=== PATIENT | female | born 1970 | race Caucasian/White ===

== ENCOUNTER 2020-04-04 13:42 | Outpatient (REF) | payer BC, SELFPAY | END 2020-04-04 13:43 | disposition home or self-care (01) | LOC: HO.LNP 13:42 | PROVIDERS: Visit Provider Internal Medicine | DX: Z20.828 Contact with and (suspected) exposure to other viral communicable diseases (principal) | CPT/HCPCS: C9803; U0003 ==

== ENCOUNTER 2020-07-02 14:06 | Outpatient (REF) | payer OTHER, SELFPAY ==
--- NOTE | 2020-07-02 14:10 | MM_ITS ---
EXAMINATION: MM SCREENING DIGITAL BREAST TOMOSYNTHESIS, BILATERAL CLINICAL INFORMATION: Screening. Asymptomatic. Status post breast reduction surgery. The lifetime risk of breast cancer based on the Tyrer-Cuzick Model is 8.3%. COMPARISON: Mammography: March 23, 2019 and studies dating back to May 15, 2013 TECHNIQUE: Digital breast tomosynthesis is performed in both the craniocaudal and mediolateral oblique views along with computer-aided detection (CAD). Synthesized 2D images are generated from the tomosynthesis. FINDINGS: There are scattered areas of fibroglandular density (ACR BI-RADS breast composition Category b). There are bilateral stable regions of postsurgical scarring. No new abnormal dominant mass or suspicious grouping of microcalcifications identified. MM/MM tomosynthesis screening BI IMPRESSION: There are no significant changes from prior study. ASSESSMENT: BI-RADS 2: Benign RECOMMENDATION: Routine annual mammography screening. This patient's information was entered into a reminder system with a target due date for their next mammogram.
== END 2020-07-02 14:07 | disposition home or self-care (01) ==
LOC: HO.MAMMO 14:06
PROVIDERS: PCP Internal Medicine; Visit Provider Internal Medicine
DX: Z12.31 Encounter for screening mammogram for malignant neoplasm of breast (principal)
CPT/HCPCS: 77063; 77067

== ENCOUNTER 2021-05-30 09:26 | Outpatient (REF) | payer OTHER, SELFPAY ==
[2021-05-30 10:45] LABS: Influenza A PCR NEGATIVE (Negative); Influenza B PCR NEGATIVE (Negative); Resp Syncy Virus RNA Qual PCR NEGATIVE (Negative); SARS COV2 PCR INHOUSE POSITIVE (Negative)
== END 2021-05-30 09:27 | disposition home or self-care (01) ==
LOC: HO.10HDLNP 09:26
PROVIDERS: Visit Provider Internal Medicine
DX: Z20.822 Contact with and (suspected) exposure to COVID-19 (principal)
CPT/HCPCS: 0241U

== ENCOUNTER 2021-08-25 08:14 | Outpatient (REF) | payer OTHER, SELFPAY ==
--- NOTE | ~2021-08-25 | MM_ITS ---
EXAMINATION: MM SCREENING DIGITAL BREAST TOMOSYNTHESIS, BILATERAL CLINICAL INFORMATION: Screening. Asymptomatic. Remote reduction mammoplasty, 1994. The lifetime risk of breast cancer based on the Tyrer-Cuzick Model is 14%. COMPARISON: Mammography: 07/02/2020, 03/23/2019, 03/07/2018 TECHNIQUE: Digital breast tomosynthesis is performed in both the craniocaudal and mediolateral oblique views along with computer-aided detection (CAD). Synthesized 2D images are generated from the tomosynthesis. FINDINGS: There are scattered areas of fibroglandular density (ACR BI-RADS breast composition Category b). Parenchymal pattern is similar to prior studies. There is stable minor scarring and benign fine round and rim and dermal calcifications consistent with the reduction mammoplasty. There is no interval architectural abnormality, mass, or developing density. No significant changes. MM/MM tomosynthesis screening BI IMPRESSION: No mammographic evidence of malignancy. ASSESSMENT: BI-RADS 2: Benign RECOMMENDATION: Routine annual mammography screening. This patient's information was entered into a reminder system with a target due date for their next mammogram.
== END 2021-08-25 08:15 | disposition home or self-care (01) ==
LOC: HO.MAMMO 08:14
PROVIDERS: PCP Internal Medicine; Visit Provider Internal Medicine
DX: Z12.31 Encounter for screening mammogram for malignant neoplasm of breast (principal)
CPT/HCPCS: 77063; 77067

== ENCOUNTER 2021-09-10 13:43 | Emergency (ER) | payer OTHER, SELFPAY ==
[2021-09-10 14:32] VITALS: BP 105/78; PULSE 65; RESP 16; TEMP 36.5; O2SAT 100; BMI 22.6
--- NOTE | 2021-09-10 15:40 | ED.WOUNDLAC ---
HPI - Wound/Laceration General Chief Complaint: Wound/Laceration Stated Complaint: thumb lac Time Seen by Provider: 09/10/21 15:40 Source: patient Mode of arrival: ambulatory Limitations: no limitations History of Present Illness HPI narrative: 51 year old female no significant medical hx presents w/ a laceration to right thumb. Patient tells me she was using a mandolin slicing machine to cut potatoes and she accidentally cut her left thumb. Patient was seen at urgent care and she was advised to come into the emergency department for sutures. She tells me this occurred at around noon. Denies numbness or tingling. She is right-hand dominant. Up to date on a tetanus shot. Denies fevers and chills Onset (ago): hour(s) (5) Body four view annotation: 1. Distal avulsion Place: home Patient tetanus UTD: Yes Context: accidental Associated symptoms: none Related Data Previous Rx's Medication Instructions Recorded doxycycline hyclate 100 mg capsule 100 mg PO BID 10 Days #20 cap 09/10/21 Allergies Allergy/AdvReac Type Severity Reaction Status Date / Time codeine [CODEINE] Allergy Mild RASH Verified 09/10/21 14:30 Review of Systems Review of Systems: Constitutional : No Fever, No Chills, Cardiovascular : No Chest Pain, No SOB Respiratory : No Dyspnea Gastrointestinal : No abdominal pain Musculoskeletal : No Joint Swelling Skin : No rash, positive skin laceration Neuro : No Weakness, No Numbness Psych : No SI/HI Yes all other systems are reviewed and are negative PMFSH Past Medical History Attestation statement: The following information was validated with the patient. Source: old records reviewed and nursing notes reviewed Medical History No known health problems Social History Social History Advance Directives: No Advance Directives Information Provided: No Physical Exam Vital Signs: Vital Signs: Last Vital Signs Temp 97.7 F 09/10/21 14:32 Pulse 65 09/10/21 14:32 Resp 16 09/10/21 14:32 BP 105/78 09/10/21 14:32 Pulse Ox 100 09/10/21 14:32 BMI result Body Mass Index 22.6 Vital signs stable Appearance: Alert.? Oriented X3.? No acute distress.? Head: Normocephalic, atraumatic, no step-offs or deformities Eyes: Pupils equal, round and reactive to light.? Neck: Normal inspection.? Neck supple.? CVS: Normal heart rate and rhythm.? Pulses normal.? Respiratory: No respiratory distress.? Breath sounds normal.? Abdomen: Soft and nontender.? Skin: Skin warm and dry.? Normal skin color.? Normal skin turgor.?+ avulsion to the left distal aspect of thumb. Image attached Extremities: No lower extremity edema.? No calf ttp. 5/5 strength to bilateral upper and lower extremities 2+ radial pulses equal bilateral. Sensation intact all upper extremities/digits. Full range of motion to all fingers bilaterally. + laceration to left thumb. No involvement of nail bed. Capillary refill less than 2 seconds. No evidence of foreign bodies. No evident ligament or tendon involvement. Neuro: Oriented X 3.? No motor deficit.? No sensory deficit. CN 2-12 intact Course Reevaluation(s) Reevaluation #1: Surgicel and Xeroform were applied to the area. Bili eating well controlled. Sensation motor intact. A dry dressing was applied to the area. Patient was advised to keep this dressing on for 24 hours. Also advised her to take antibiotics doxycycline 100 mg p.o. b.i.d. The educated her on worrisome signs and symptoms and advised her to return if any of these arise. Comfortable discharge Time: 16:52 MDM - Wound/Laceration [facility] Narrative Medical decision making narrative: 1542 51 yo f presents w/ an avulsion to l thumb PE significant for 2+ radial pulses equal bilateral. Sensation intact all upper extremities/digits. Full range of motion to all fingers bilaterally. + laceration to left thumb. No involvement of nail bed. Capillary refill less than 2 seconds. No evidence of foreign bodies. No evident ligament or tendon involvement. Plan- Surgicel and Xeroform will be applied to the area. Medical Records Attestation: I reviewed the patient's medical records. Lab Data Attestation: I reviewed the patient's lab results. Critical Care Time Critical Care Time Critical Care Time: No Discharge Plan Discharge Clinical Impression: Avulsion of skin Patient Disposition: Home, Self-Care Additional Instructions: Take your medications as prescribed. If you were prescribed antibiotics today, it is important that you take your medication to their entirety, do not skip any doses, do not finish them early. Follow-up with your primary care provider this week. Return to the emergency department with new or worsening symptoms. Such as fevers, chills, chest pain, shortness of breath, nausea, vomiting, dizziness, headache, vision changes, lethargy In case of emergency call 911 Prescriptions: New doxycycline hyclate 100 mg capsule 100 mg PO BID 10 Days Qty: 20 0RF Referrals: Bryce Jeffery MD [Primary Care Provider] - 1 week Stand Alone Forms: Work/School Release
[2021-09-10] MEDS: Lidocaine HCl 2 % MPF 5 ML VIAL SUBCUT (15:48)
[2021-09-10 17:06] VITALS: BP 137/82; PULSE 69; RESP 16; TEMP 36.8; O2SAT 100
== END 2021-09-10 17:36 | disposition home or self-care (01) ==
PROVIDERS: Emergency Provider Emergency Medicine; PCP Internal Medicine
DX: S61.011A Laceration without foreign body of right thumb without damage to nail, initial encounter (principal); M79.641 Pain in right hand; W26.9XXA Contact with unspecified sharp object(s), initial encounter; Y93.9 Activity, unspecified; Y92.009 Unspecified place in unspecified non-institutional (private) residence as the place of occurrence of the external cause; Y99.9 Unspecified external cause status
CPT/HCPCS: 12001; 96372; 99284

== ENCOUNTER 2022-10-27 07:16 | Outpatient (REF) | payer OTHER, SELFPAY ==
--- NOTE | ~2022-10-27 | MM_ITS ---
EXAMINATION: MM SCREENING DIGITAL BREAST TOMOSYNTHESIS, BILATERAL CLINICAL INFORMATION: Screening. Asymptomatic. Remote reduction mammoplasty, 1994. The lifetime risk of breast cancer based on the Tyrer-Cuzick Model is 12%. COMPARISON: Mammography: 08/25/2021, 07/02/2020, 03/23/2019, 03/07/2018 TECHNIQUE: Digital breast tomosynthesis is performed in both the craniocaudal and mediolateral oblique views along with computer-aided detection (CAD). Synthesized 2D images are generated from the tomosynthesis. FINDINGS: There are scattered areas of fibroglandular density (ACR BI-RADS breast composition Category b). There are no significant masses, abnormal calcifications, or other abnormalities. Parenchymal pattern is similar to prior studies. There is no developing density or architectural abnormality. There is minor scarring and some scattered anterior breast calcifications consistent with the reduction mammoplasty. The axilla and skin contours are unremarkable. No significant changes. MM/MM tomosynthesis screening BI IMPRESSION: No mammographic evidence of malignancy. ASSESSMENT: BI-RADS 2: Benign RECOMMENDATION: Routine annual mammography screening. This patient's information was entered into a reminder system with a target due date for their next mammogram.
== END 2022-10-27 07:17 | disposition home or self-care (01) ==
LOC: HO.MAMMO 07:16
PROVIDERS: PCP Internal Medicine; Visit Provider Internal Medicine
DX: Z12.31 Encounter for screening mammogram for malignant neoplasm of breast (principal)
CPT/HCPCS: 77063; 77067

== ENCOUNTER 2023-03-15 08:59 | Outpatient (REF) | payer OTHER, SELFPAY ==
[2023-03-15 11:54] LABS: MANUAL DIFF FLAG NO
[2023-03-15 12:02] LABS: Basophils Percent Auto 0.5 % (0-2); Eosinophils Absolute Auto 0.1 X10*3/uL (0.0-0.4); Eosinophils Percent Auto 1.6 % (0-4); Hematocrit 42.9 % (37.0-47.0); Hemoglobin 14.3 g/dl (12.0-16.0); Imm Gran Abs Auto 0.01 X10*3/uL (0.00-0.03); Imm Gran Pct Auto 0.2 % (0.0-0.4); Lymphocytes Absolute Auto 2.2 X10*3/uL (1.2-4.9); Lymphocytes Percent Auto 39.4 % (20-40); Mean Corpuscular HGB Conc 33.3 g/dl (31.0-35.0); Mean Corpuscular Hemoglobin 31.8 pg (27.0-33.0); Mean Corpuscular Volume 95.3 fL (80.0-98.0); Mean Platelet Volume 10.3 fL (9.4-12.3); Monocytes Absolute Auto 0.3 X10*3/uL (0.1-1.2); Monocytes Percent Auto 6.1 % (2-11); Neutrophils Absolute Auto 2.9 x10*3/uL (2.0-8.3); Neutrophils Percent Auto 52.2 % (45-73); Platelet Count 286 X10*3/uL (160-400); Red Cell Distribution Width 12.3 % (11.0-16.0); White Blood Count 5.6 X10*3/uL (4.8-10.8)
[2023-03-15 12:53] LABS: Alanine Aminotransferase 13 U/L (0-31); Albumin Level 4.2 g/dL (3.5-5.0); Alkaline Phosphatase 60 U/L (39-117); Anion Gap 12 (12-20); Aspartate Amino Transferase 18 U/L (5-31); Bilirubin Total 0.5 mg/dL (0.0-1.0); Blood Urea Nitrogen 16 mg/dL (9-16); Calcium 9.6 mg/dL (8.4-10.2); Carbon Dioxide 25 mmol/L (22-29); Chloride 108 mmol/L (96-108); Cholesterol 175 mg/dL (<200); Estimated Glomerular Filt Rate > 60; Glucose Fasting 82 mg/dL (60-99); HDL Cholesterol 53 mg/dL (>40); LDL Cholesterol Calculated 105 mg/dL (<100); Potassium 4.4 mmol/L (3.3-5.1); Sodium 141 mmol/L (135-145); Total Protein 6.6 g/dL (6.5-8.0); Triglycerides 87 mg/dL (<150)
== END 2023-03-15 09:00 | disposition home or self-care (01) ==
LOC: HO.HMGCLDS 08:59
PROVIDERS: PCP Internal Medicine; Visit Provider Internal Medicine
DX: Z00.00 Encounter for general adult medical examination without abnormal findings (principal); Z20.2 Contact with and (suspected) exposure to infections with a predominantly sexual mode of transmission
CPT/HCPCS: 36415; 80053; 80061; 85025

== ENCOUNTER 2023-03-15 14:17 | Outpatient (REF) | payer OTHER, SELFPAY ==
[2023-03-15 15:38] LABS: Appearance Urine Clear; Color Urine Yellow; Glucose Urine UA Negative (Negative); Leukocyte Esterase Urine Negative (Negative); Nitrite Urine Negative (Negative); Specific Gravity - Urine 1.025 (1.005-1.025); UMIC TRIGGER UA YES; Urine Blood Small (1+) (Negative); Urine Ketones Negative (Negative); Urine Protein Negative (Neg-Trace)
[2023-03-15 15:44] LABS: Bacteria Urine Trace (None Seen); Hyaline Casts Urine 0-2 /LPF (0-2); Squamous Epithelial Cell Urine 0-2 /HPF (0-2); WBC Urine 0-5 /HPF (0-5)
== END 2023-03-15 14:18 | disposition home or self-care (01) ==
LOC: HO.LAB 14:17
PROVIDERS: PCP Internal Medicine; Visit Provider Internal Medicine
DX: R30.0 Dysuria (principal)
CPT/HCPCS: 81001; 87086

== ENCOUNTER 2023-07-29 06:49 | Emergency (ER) | payer OTHER, SELFPAY ==
--- NOTE | ~2023-07-29 | CT_ITS ---
EXAMINATION: CT ABDOMEN AND PELVIS WITH CONTRAST CLINICAL INFORMATION: Upper abdominal pain COMPARISON: None available. TECHNIQUE: Multidetector volumetric images were obtained from the superior aspect of the liver through the pubic symphysis following administration 85 mL of Omnipaque 350 intravenous contrast. Sagittal and coronal reformatted images were obtained on the technologist's workstation. Oral contrast: No This CT examination was performed using dose optimization techniques as appropriate, variously including the following: *Automated exposure control *Adjustment of mA and/or kV according to patient size (this includes techniques or standardized protocols for targeted exams where dose is matched to indication/reason for exam; i.e. extremities or head) *Use of iterative reconstruction technique DLP: 310 mGy-cm FINDINGS: LUNG BASES: The visualized lung bases are unremarkable. LIVER, GALLBLADDER, AND BILIARY TREE: The liver is mildly enlarged in size, normal shape, and attenuation. No focal hepatic lesion or biliary ductal dilatation is present. The gallbladder is unremarkable with no evidence of radiopaque gallstones, gallbladder wall thickening, or obvious pericholecystic inflammatory changes. PANCREAS: Unremarkable. SPLEEN: Unremarkable. ADRENAL GLANDS: Unremarkable. KIDNEYS AND URETERS: The kidneys are normal in size, shape, and attenuation. No hydronephrosis, hydroureter, or calculi seen. No perinephric stranding. BLADDER: Unremarkable. GASTROINTESTINAL TRACT: There is scattered stool and gas seen throughout the colon without any distention. The small bowel loops are normal caliber. Appendix is not visualized with certainty. No free air or free fluid seen. ABDOMINAL WALL: No significant hernia is appreciated. LYMPH NODES: Normal. VASCULAR: Unremarkable. PELVIC VISCERA: The uterus is anteverted with a small enhancing nodule along the anterior body of uterus likely a fibroid. It measures approximately 7 mm.. No adnexal mass or abnormal lymphadenopathy seen. There is no free air or free fluid seen. OSSEOUS STRUCTURES: Unremarkable. CT/CT abdomen pelvis w IV con IMPRESSION: Moderate constipation. No acute intra-abdominal process seen. Likely small uterine fibroid. Fleischner guidelines were followed.
[2023-07-29 07:02] VITALS: BP 90/53; PULSE 74; RESP 16; TEMP 36.6; O2SAT 98; BMI 22.7
[2023-07-29 07:18] LABS: MANUAL DIFF FLAG NO
[2023-07-29 07:19] LABS: Basophils Percent Auto 0.6 % (0-2); Eosinophils Absolute Auto 0.1 X10*3/uL (0.0-0.4); Eosinophils Percent Auto 1.6 % (0-4); Hematocrit 41.3 % (37.0-47.0); Hemoglobin 14.2 g/dl (12.0-16.0); Imm Gran Abs Auto 0.01 X10*3/uL (0.00-0.03); Imm Gran Pct Auto 0.2 % (0.0-0.4); Lymphocytes Absolute Auto 2.6 X10*3/uL (1.2-4.9); Lymphocytes Percent Auto 42.1 % (20-40); Mean Corpuscular HGB Conc 34.4 g/dl (31.0-35.0); Mean Corpuscular Hemoglobin 32.1 pg (27.0-33.0); Mean Corpuscular Volume 93.4 fL (80.0-98.0); Mean Platelet Volume 9.7 fL (9.4-12.3); Monocytes Absolute Auto 0.3 X10*3/uL (0.1-1.2); Monocytes Percent Auto 5.3 % (2-11); Neutrophils Absolute Auto 3.1 x10*3/uL (2.0-8.3); Neutrophils Percent Auto 50.2 % (45-73); Platelet Count 241 X10*3/uL (160-400); Red Blood Count 4.42 X10*6/uL (4.20-5.50); White Blood Count 6.3 X10*3/uL (4.8-10.8)
[2023-07-29 07:21] LABS: Appearance Urine Clear; Color Urine Yellow; Glucose Urine UA Negative (Negative); Leukocyte Esterase Urine Trace (Negative); Nitrite Urine Negative (Negative); PH 5.5 (5.0-9.0); UMIC TRIGGER UACC YES; Urine Blood Moderate (2+) (Negative); Urine Ketones Negative (Negative); Urine Protein Negative (Neg-Trace)
[2023-07-29 07:33] LABS: Anion Gap 11 (12-20); Blood Urea Nitrogen 14 mg/dL (9-16); Carbon Dioxide 25 mmol/L (22-29); Chloride 108 mmol/L (96-108); Creatinine Clr Calc Pharmacy 56.9; Estimated Glomerular Filt Rate > 60; Glucose Random 86 mg/dL (60-115); Potassium 4.2 mmol/L (3.3-5.1); Sodium 140 mmol/L (135-145)
[2023-07-29 07:34] LABS: Bacteria Urine 1+ (None Seen); Hyaline Casts Urine 0-2 /LPF (0-2); WBC Urine 0-5 /HPF (0-5)
--- NOTE | 2023-07-29 07:50 | ED_ITS ---
HPI - Abdominal Pain General Chief Complaint: Abdominal Pain Stated Complaint: abd pain Time Seen by Provider: 07/29/23 07:43 Source: patient Mode of arrival: ambulatory Limitations: no limitations History of Present Illness HPI narrative: 53 years old female presented to emergency department complaining of upper abdominal pain radiated to the back the pain is been going on for few days, the patient is subsiding right now lying in the stretcher. Denies any nausea vomiting diarrhea MD elicited complaint: abdominal pain Pertinent past history: other (Recovering alcoholic) Onset (ago): day(s) (3) Pain Consistency: constant Location: epigastric Severity: moderate Quality: cramping Radiation: other (back) Migration to: no migration Exacerbating factors: nothing Relieving factors: nothing Related Data Previous Rx's Medication Instructions Recorded doxycycline hyclate 100 mg capsule 100 mg PO BID 10 days #20 caps 09/10/21 Allergies Allergy/AdvReac Type Severity Reaction Status Date / Time codeine [CODEINE] Allergy Mild RASH Verified 09/10/21 14:30 Review of Systems Constitutional: Reports no additional constitutional complaints Reports system reviewed and no additional complaints, except as documented Cardiovascular: Reports no additional cardiovascular complaints Reports system reviewed and no additional complaints, except as documented PMFSH Past Medical History PMFSH Narrative: recovering alcohol abuse Medical History No known health problems Social History Social History Advance Directives: No Advance Directives Information Provided: No Physical Exam ED Vital Signs: Vital Signs - 24 hr 07/29/23 07:02 07/29/23 10:18 Temperature 98 F 98.5 F Pulse Rate 74 62 Respiratory Rate 16 20 Blood Pressure 90/53 L 103/65 Pulse Oximetry 98 98 Oxygen Delivery Method Room Air Room Air BMI result Body Mass Index 22.7 Const General: cooperative Nutritional Appearance: average body habitus Orientation/consciousness: patient oriented x3 Limitations: no limitations HENMT Head: Yes normal to inspection Ears: hearing grossly normal bilaterally General nose exam: Normal external nose present Face and sinus: Yes normal facial exam Mouth: Normal oral and palatal mucosa present Throat: Yes posterior oropharynx normal Neck Neck: Yes normal visual inspection and Yes full ROM Chest Chest palpation & inspection: normal inspection of the chest Resp Effort & Inspection: normal respiratory effort Auscultation: clear to auscultation bilaterally Cardio Jugular venous distension: no JVD GI Inspection: Yes normal to inspection Palpation (GI): Soft to palpation Auscultation: normal bowel sounds Skin General skin exam: no rashes or lesions noted and elasticity normal Lesions: no lesions Rashes: no rashes Neuro General: patient oriented x3 Course Reevaluation(s) Reevaluation #1: Doing much better workup is essentially negative anticipate discharge Time: 09:43 Medical Decision Making Medical Decision Making [facility] Narrative: Patient presented with abdominal pain radiated to the back she has history of alcohol abuse in the past will get labs and imaging Differential Diagnosis Differential Diagnoses: The differential diagnosis associated with the presentation includes Pancreatitis/SBO/cholecystitis Admission/Observation Consideration of admission/observation: Escalation of care including admission/observation considered Lab Data [facility] Lab Attestation statement: I reviewed the patient's lab results. 07/29/23 07:13 07/29/23 07:13 Labs: Lab Results 07/29/23 07/29/23 Range/Units 07:13 07:14 WBC 6.3 (4.8-10.8) X10*3/uL RBC 4.42 (4.20-5.50) X10*6/uL Hgb 14.2 (12.0-16.0) g/dl Hct 41.3 (37.0-47.0) % MCV 93.4 (80.0-98.0) fL MCH 32.1 (27.0-33.0) pg MCHC 34.4 (31.0-35.0) g/dl RDW 12.0 (11.0-16.0) % Plt Count 241 (160-400) X10*3/uL MPV 9.7 (9.4-12.3) fL Immature Gran % (Auto) 0.2 (0.0-0.4) % Neut % (Auto) 50.2 (45-73) % Lymph % (Auto) 42.1 H (20-40) % [place] % (Auto) 5.3 (2-11) % Eos % (Auto) 1.6 (0-4) % Baso % (Auto) 0.6 (0-2) % Lymph # (Auto) 2.6 (1.2-4.9) X10*3/uL [place] # (Auto) 0.3 (0.1-1.2) X10*3/uL Eos # (Auto) 0.1 (0.0-0.4) X10*3/uL Baso # (Auto) 0.0 (0.0-0.2) X10*3/uL Abs Immat Gran (auto) 0.01 (0.00-0.03) X10*3/uL Absolute Neuts (auto) 3.1 (2.0-8.3) x10*3/uL Absolute Nucleated RBC 0.000 (0.0-0.012) X10*3/uL Nucleated RBC % (auto) 0.0 (0.0-0.2) /100WBC Sodium 140 (135-145) mmol/L Potassium 4.2 (3.3-5.1) mmol/L Chloride 108 (96-108) mmol/L Carbon Dioxide 25 (22-29) mmol/L Anion Gap 11 L (12-20) BUN 14 (9-16) mg/dL Creatinine 0.84 (0.5-1.4) mg/dL Estim Creat Clear Calc 56.9 Estimated GFR > 60 Random Glucose 86 (60-115) mg/dL Calcium 9.0 D (8.4-10.2) mg/dL Total Bilirubin 0.4 (0.0-1.0) mg/dL Direct Bilirubin 0.2 (0.0-0.5) mg/dL AST 15 (5-31) U/L ALT 11 (0-31) U/L Alkaline Phosphatase 58 (39-117) U/L Total Protein 6.4 L (6.5-8.0) g/dL Albumin 3.9 (3.5-5.0) g/dL Lipase 17 (8-78) U/L Urine Color Yellow Urine Appearance Clear Urine pH 5.5 (5.0-9.0) Ur Specific [place] 1.020 (1.005-1.025) Urine Protein Negative (Neg-Trace) mg/dL Urine Glucose (UA) Negative (Negative) mg/dL Urine Ketones Negative (Negative) mg/dL Urine Blood Moderate (2+) H (Negative) Urine Nitrite Negative (Negative) Ur Leukocyte Esterase Trace H (Negative) Urine RBC 3-5 H (0-2) /HPF Urine WBC 0-5 (0-5) /HPF Ur Squamous Epith Cells 3-5 (0-2) /HPF Urine Bacteria 1+ (None Seen) Hyaline Casts 0-2 (0-2) /LPF Independent Interpretation I performed an independent interpretation of an: CT Scan Interpretation: No acute disease reviewed personally by me Radiology Impression Discussion of test interpretation with radiology: I have reviewed the radiologist's reading. Radiologist Impression: constipation Medications Administered Discontinued Medications Generic Name Dose Route Start Last Admin Trade Name Jer PRN Reason Stop Dose Admin Iohexol 100 ml 07/29/23 08:53 07/29/23 08:54 Iohexol 350 Mg/Ml 100 Ml Infus..Btl IV 07/29/23 08:54 85 ml ONCE ONE Administration Discharge Plan Discharge Clinical Impression: Abdominal pain Qualifiers: Abdominal location: upper abdomen, unspecified Qualified Code(s): R10.10 - Upper abdominal pain, unspecified Patient Disposition: Home, Self-Care Instructions: Abdominal Pain (ED) Additional Instructions: Follow-up with your primary care physician also keep your appointment with the multimedia instructional designer Dr. Marrero Saturday as scheduled return if you worse Prescriptions: No Action doxycycline hyclate 100 mg capsule 100 mg PO BID 10 Days Qty: 20 0RF Referrals: Bryce Jeffery MD [Primary Care Provider] - 3 days Stand Alone Forms: Work/School Release Interventions: ED Discharge Assessment Last Done: 07/29/23 10:21 Discharge Date/Time: 07/29/23 10:23
[2023-07-29 08:01] LABS: Alanine Aminotransferase 11 U/L (0-31); Albumin Level 3.9 g/dL (3.5-5.0); Alkaline Phosphatase 58 U/L (39-117); Aspartate Amino Transferase 15 U/L (5-31); Bilirubin Direct 0.2 mg/dL (0.0-0.5); Bilirubin Total 0.4 mg/dL (0.0-1.0); Lipase 17 U/L (8-78); Total Protein 6.4 g/dL (6.5-8.0)
[2023-07-29] MEDS: iohexoL 350 MG/ML 100 ML INFUS..BTL IV (08:54)
[2023-07-29 10:18] VITALS: BP 103/65; PULSE 62; RESP 20; TEMP 36.9; O2SAT 98
--- NOTE | 2023-07-29 10:21 | PC.NURSE ---
Pt given d/c instructions, advised to follow liquid/bland diet for 48 hours by MD, education given on intake.
== END 2023-07-29 10:23 | disposition home or self-care (01) ==
PROVIDERS: Emergency Provider Emergency Medicine; PCP Internal Medicine
DX: R10.10 Upper abdominal pain, unspecified (principal)
CPT/HCPCS: 36415; 74177; 80048; 80076; 81001; 83690; 85025; 99284; Q9967

== ENCOUNTER 2023-08-08 13:30 | Outpatient (REF) | payer OTHER, SELFPAY ==
--- NOTE | ~2023-08-08 | US_ITS ---
EXAMINATION: US ABDOMEN COMPLETE CLINICAL INFORMATION: Epigastric pain. COMPARISON: CT abdomen and pelvis 07/29/2023. TECHNIQUE: Real-time imaging of the abdominal viscera. FINDINGS: PANCREAS: Normal. ABDOMINAL AORTA: The proximal, mid, and distal segments are normal in caliber. INFERIOR VENA CAVA: Visualized portions are normal. LIVER: Normal. The liver is normal in size. The liver contour is normal. Parenchymal echogenicity is normal. No focal hepatic lesion. There is no intrahepatic biliary duct dilatation seen. GALLBLADDER: Normal. The gallbladder is physiologically distended without evidence of stones, sludge, polyps, wall thickening or pericholecystic fluid. COMMON BILE DUCT: Normal in caliber measuring 0.66 cm in diameter. RIGHT KIDNEY: Normal. No hydronephrosis. No renal calculi or focal parenchymal lesions. The kidney measures 9.1 cm in maximum dimension. LEFT KIDNEY: Normal. No hydronephrosis. No renal calculi or focal parenchymal lesions. The kidney measures 9.4 cm in maximum dimension. SPLEEN: Normal. The spleen measures 10.0 cm in maximum dimension. FREE FLUID: None. US/US abdomen complete IMPRESSION: Normal abdominal ultrasound.
== END 2023-08-08 13:31 | disposition home or self-care (01) ==
LOC: HO.HMGCX 13:30
PROVIDERS: PCP Internal Medicine; Visit Provider Internal Medicine
DX: R10.13 Epigastric pain (principal)
CPT/HCPCS: 76700

== ENCOUNTER → 2023-09-06 07:36 | Outpatient (REF) | payer OTHER, SELFPAY ==
--- NOTE | ~2023-09-06 | NM_ITS ---
EXAMINATION: BILIARY TRACT IMAGING STUDY WITH CCK CLINICAL INFORMATION: Epigastric pain. Sonographically normal gallbladder. Suspected acalculous cholecystitis. COMPARISON: Abdominal ultrasound done on 08/08/[address] of the abdomen and pelvis done on 07/29/2023.. TECHNIQUE: Serial gamma scintillation camera images were obtained over the abdomen for a total observation period of 60 minutes following the intravenous administration of 5.0 mCi Tc-99m mebrofenin. FINDINGS: There is good concentration of activity in the liver by 5 minutes post injection. Biliary activity is visualized by 8 minutes. The gallbladder is well visualized by 20 minutes. Small bowel is well visualized by 60 minutes. At 60 minutes post radiopharmaceutical injection, a 30-minute infusion of 1.0 micrograms Sincalide was then begun and an additional 40 minutes of images were obtained. There is good emptying of the gallbladder. By the end of the study there is good clearance of activity from the liver and visualization of diffuse small bowel activity. The calculated gallbladder ejection fraction is 37% (normal gallbladder ejection fraction is greater than 35%). NM/NM hepatobiliary w pharm IMPRESSION: Visualization of the gallbladder is evidence of a patent cystic duct and strong evidence against the diagnosis of acute cholecystitis. The common bile duct is patent. Gallbladder emptying and ejection fraction are normal. Liver function appears normal.
== END ==
LOC: HO.NUCMED 07:36
PROVIDERS: PCP Internal Medicine; Visit Provider Internal Medicine
DX: R10.13 Epigastric pain (principal)
CPT/HCPCS: 78227; A9537; J2805

== ENCOUNTER 2023-10-04 11:37 | Outpatient (REF) | payer OTHER, SELFPAY ==
[2023-10-08 02:04] LABS: Lyme Abs Screen <0.90 index
== END 2023-10-04 11:38 | disposition home or self-care (01) ==
LOC: HO.HMGCLDS 11:37
PROVIDERS: PCP Internal Medicine; Visit Provider Internal Medicine
DX: T14.8XXA Other injury of unspecified body region, initial encounter (principal); W57.XXXA Bitten or stung by nonvenomous insect and other nonvenomous arthropods, initial encounter
CPT/HCPCS: 36415; 86617; 86618

== ENCOUNTER 2023-11-22 07:51 | Day surgery (SDC) | payer OTHER, SELFPAY ==
--- NOTE | 2023-11-20 12:23 | P.CONAN_ITS ---
Documented by User: Ximena Farrell NP 11/20/23 12:23 HPI - Anesthesia Eval Consult details Narrative: 53yo F for Upper Endoscopy and Colonoscopy [facility] Past Medical History Medical History Hx of squamous cell carcinoma ETOH abuse Anxiety No known health problems Surgical History Surgical History Hx of breast surgery History of surgery on right wrist Social History Social History Patient Tobacco Use Status: Former Tobacco user Use of substances other than those prescribed or required for medical reasons: No Are you DNR?: No Advance Directives: No Advance Directives Information Provided: Yes Patient : No Meds Allergies Allergy/AdvReac Type Severity Reaction Status Date / Time codeine [CODEINE] Allergy Mild RASH Verified 09/10/21 14:30 Home Medications ?Medication ?Instructions ?Recorded ?Confirmed ?Last Taken ?Type L norgest/E estradiol-E estrad 1 tab PO DAILY 11/20/23 11/20/23 Unknown History 0.15 mg-30 mcg (84)/10 mcg(7) tabs,3mos ([place]) fexofenadine 180 mg tablet 180 mg PO DAILY 11/20/23 11/20/23 Unknown History magnesium oxide 300 mg PO DAILY 11/20/23 11/20/23 Unknown History melatonin 3 mg tablet 3 mg PO BEDTIME PRN Insomnia 11/20/23 11/20/23 Unknown Hi story sertraline 100 mg tablet 100 mg PO DAILY 11/20/23 11/20/23 Unknown History Assessment and Plan Assessment Anesthesia Assessment: Chart Reviewed Documented by User: Netta Martinez MD 11/22/23 09:04 [facility] Past Medical History Medical History Hx of squamous cell carcinoma ETOH abuse Anxiety No known health problems Surgical History Surgical History Hx of breast surgery History of surgery on right wrist History of Problems with Anesthesia: No Social History Social History Patient Tobacco Use Status: Former Tobacco user Use of substances other than those prescribed or required for medical reasons: No Are you DNR?: No Advance Directives: No Advance Directives Information Provided: Yes Patient : No Meds Allergies Allergy/AdvReac Type Severity Reaction Status Date / Time codeine [CODEINE] Allergy Mild RASH Verified 09/10/21 14:30 Home Medications ?Medication ?Instructions ?Recorded ?Confirmed ?Last Taken ?Type L norgest/E estradiol-E estrad 1 tab PO DAILY 11/20/23 11/20/23 Unknown History 0.15 mg-30 mcg (84)/10 mcg(7) tabs,3mos ([place]) fexofenadine 180 mg tablet 180 mg PO DAILY 11/20/23 11/20/23 Unknown History magnesium oxide 300 mg PO DAILY 11/20/23 11/20/23 Unknown History melatonin 3 mg tablet 3 mg PO BEDTIME PRN Insomnia 11/20/23 11/20/23 Unknown History sertraline 100 mg tablet 100 mg PO DAILY 11/20/23 11/20/23 Unknown History Exam Airway Mallampati Class: II TM Dist: >3cm Neck ROM: Full Loose/Missing/Broken Teeth: No Heart: RRR Lungs: CTA Assessment and Plan Assessment Anesthesia Assessment: Anesthesia Plan Discussed Final Anesthetic Review History of Problems with Anesthesia: No NPO: Yes ASA Class: II Final Preanesthetic Review: Meds/Allgs Chart Reviewed, Consent Obtained/Reviewed and Anes Risks/Benef Reviewed Patient Risk: Low Procedure Risk: Intermediate Anesthetic Plan Anesthetic Plan: MAC: Disposition: Standard PACU
[2023-11-20 14:19] VITALS: BMI 23.0
[2023-11-22 07:59] VITALS: BMI 22.8; BMI 22.9
[2023-11-22 08:14] VITALS: BP 130/82; PULSE 75; RESP 16; TEMP 36.7; O2SAT 100
[2023-11-22] MEDS: Lactated Ringers 1,000 ML 100 ML IVCONT (08:26)
[2023-11-22 10:06] VITALS: BP 141/58; PULSE 86; RESP 16; TEMP 36.6; O2SAT 99
--- NOTE | 2023-11-22 10:09 | P.BOP_ITS ---
Brief Operative Note Date of Service: 11/22/23 Pre-op diagnosis: Abdominal pain, Screening Post-op diagnosis: other (Hiatal hernia, Same) Procedure: EGD with biopsies, Colonoscopy to the cecum Surgeon: Andres Marrero MD Anesthesia: MAC Was an Screening Specialist used for this Procedure?: No Estimated blood loss (mL): 2.0 Pathology: other (A. Descending duodenum B. Gastric antrum C. EG Junction at 35cm) Condition: stable Disposition: PACU
[2023-11-22 10:21] VITALS: BP 145/90; PULSE 67; RESP 15; TEMP 36.6; O2SAT 99
--- NOTE | 2023-11-22 10:34 | OP_ITS ---
DATE OF SERVICE: 11/22/2023 SURGEON: Andres Marrero MD INDICATIONS: The patient presents for evaluation of abdominal pain and colorectal cancer screening. Full consent has been obtained from her for this, including risks of bleeding and perforation. PREOPERATIVE DIAGNOSIS: POSTOPERATIVE DIAGNOSIS: PROCEDURE PERFORMED: Esophagogastroduodenoscopy with biopsies, and colonoscopy to the cecum. ESTIMATED BLOOD LOSS: COMPLICATIONS: ANESTHESIA: Monitored anesthesia care. ASSISTANTS: SPECIMENS: PREOPERATIVE DIAGNOSES: Abdominal pain and colorectal cancer screening. POSTOPERATIVE DIAGNOSES: Abdominal pain, colorectal cancer screening, small hiatal hernia, occasional sigmoid diverticulosis, internal hemorrhoids. DESCRIPTION OF PROCEDURE: The patient was placed in the left lateral decubitus position. The Olympus video gastroscope was passed in the posterior oropharynx and upper esophagus under direct vision. The scope was passed slowly to the distal esophagus. The gastroesophageal junction appeared at 35 cm. There was some slight irregularity, but no evidence of any esophagitis nor any definitive evidence of Fountain mucosa. The scope entered the stomach. There was a small hiatal hernia. The scope was advanced to pylorus and the duodenum was cannulated to the descending portion. The duodenum including the bulb appeared normal without mass or ulceration. Biopsies were obtained from the 2nd and 3rd portions of duodenum. The scope was withdrawn back to the stomach. The gastric antrum and body appeared normal with good peristalsis. Biopsies were obtained from the antrum. The scope was retroflexed, visualizing the proximal stomach carefully, which appeared normal, without any sign of mass or ulceration. The scope was straightened and withdrawn back to the esophagus. Biopsies were obtained at the EG junction at 35 cm. Proximal to that, the esophageal mucosa appeared normal. Scope was withdrawn from the patient. She was turned around for the colonoscopy. The digital rectal exam revealed no abnormalities. The Olympus video pediatric colonoscope was then entered into the rectum and advanced easily to the cecum. Once in the cecum, I did identify normal-appearing cecal pouch with appendiceal orifice and a normal-appearing ileocecal valve. The entire cecum and ileocecal valve appeared normal. There was transillumination of light deep in the right lower quadrant. The scope was slowly withdrawn assessing all mucosal surfaces carefully. Preparation was excellent. I did not visualize any sign of polyps, colitis, or angiodysplasias. There were occasional diverticula noted in the sigmoid colon. In the rectum, scope was retroflexed, visualizing internal hemorrhoids, but no other pathology. The rectal mucosa appeared normal. The scope was straightened and withdrawn from the patient. She tolerated the procedures well and was returned to the recovery area in stable condition. IMPRESSION: 1. Small hiatal hernia. 2. Rule out celiac disease. 3. Occasional sigmoid diverticulosis. 4. Internal hemorrhoids. PLAN: The results of the biopsy will be checked. I would recommend a repeat colonoscopy in 10 years for further screening. She has been using Carafate recently and has not had any further abdominal pain. At this point, I advised her to hold off on using Carafate and see how she does without that. A previous abdominal ultrasound was normal and a HIDA scan showed a low normal gallbladder ejection fraction. If she continues to have episodes of right upper quadrant pain, then we could consider evaluation for possible cholecystectomy given the HIDA scan results. However, at this point, I would hold off on that and simply observe things. She will see me on a p.r.n. basis, but I did advise her to contact me if she has any problems in regard to the ongoing abdominal pain. This has been discussed with her . MD LISSY Ruiz/CIRA / [phone]
== END 2023-11-22 10:48 | disposition home or self-care (01) ==
PROVIDERS: PCP Internal Medicine; Visit Provider Internal Medicine
PROC: (CPT 45378; principal; 2023-11-22 09:00)
DX: Z12.11 Encounter for screening for malignant neoplasm of colon (principal); K57.30 Diverticulosis of large intestine without perforation or abscess without bleeding; K64.8 Other hemorrhoids; R10.13 Epigastric pain; K44.9 Diaphragmatic hernia without obstruction or gangrene; Z85.828 Personal history of other malignant neoplasm of skin; F41.9 Anxiety disorder, unspecified; F10.11 Alcohol abuse, in remission; F19.11 Other psychoactive substance abuse, in remission; Z79.899 Other long term (current) drug therapy; Z88.5 Allergy status to narcotic agent; Z98.890 Other specified postprocedural states; Z87.891 Personal history of nicotine dependence
CPT/HCPCS: 45378; 43239; 88305; 88313; 88342; J2704

== ENCOUNTER 2023-12-12 06:13 | Outpatient (REF) | payer OTHER, SELFPAY ==
[2023-12-12 10:27] LABS: Appearance Urine Clear; Color Urine Yellow; Glucose Urine UA Negative (Negative); Leukocyte Esterase Urine Moderate (2+) (Negative); Nitrite Urine Negative (Negative); PH 6.5 (5.0-9.0); UMIC TRIGGER UA YES; Urine Blood Small (1+) (Negative); Urine Ketones Negative (Negative); Urine Protein Negative (Neg-Trace)
[2023-12-12 10:41] LABS: Bacteria Urine 2+ (None Seen); Hyaline Casts Urine 0-2 /LPF (0-2); WBC Urine 0-5 /HPF (0-5)
== END 2023-12-12 06:14 | disposition home or self-care (01) ==
LOC: HO.HMGCLDS 06:13
PROVIDERS: PCP Internal Medicine; Visit Provider Internal Medicine
DX: R30.0 Dysuria (principal)
CPT/HCPCS: 81001; 87086

== ENCOUNTER 2024-01-24 08:19 | Outpatient (REF) | payer OTHER, SELFPAY ==
--- NOTE | ~2024-01-24 | MM_ITS ---
EXAMINATION: MM SCREENING DIGITAL BREAST TOMOSYNTHESIS, BILATERAL CLINICAL INFORMATION: Screening. Asymptomatic. History of breast reduction surgery 1994. Paternal grandmother with history of breast CA age 40. COMPARISON: Mammography: 10/27/2022, 08/25/2021, 07/02/2020, 03/23/2029, and dating back to 2014. TECHNIQUE: Digital breast tomosynthesis is performed in both the craniocaudal and mediolateral oblique views along with computer-aided detection (CAD). Synthesized 2D images are generated from the tomosynthesis. FINDINGS: There are scattered areas of fibroglandular density (ACR BI-RADS breast composition Category b). There are stable foci of mammoplasty scarring in both breasts, with benign scattered punctate calcifications, stable. There are no suspicious masses, suspicious grouped calcifications, or areas of architectural distortion in either breast. The parenchymal pattern is stable from prior exams. There is no skin or axillary abnormality. MM/MM tomosynthesis screening BI IMPRESSION: No mammographic evidence of malignancy. Stable benign findings both breasts. ASSESSMENT: BI-RADS BI-RADS 2 - Benign Findings RECOMMENDATION: Routine annual mammography screening. 1 year F/U This examination should not preclude the clinical evaluation of a suspicious palpable abnormality. This patient's information was entered into a reminder system with a target due date for their next mammogram. Electronically signed by: Mihir Mai MD 01/28/2024 09:19 AM EDT
== END 2024-01-24 08:20 | disposition home or self-care (01) ==
LOC: HO.MAMMO 08:19
PROVIDERS: PCP Internal Medicine; Visit Provider Internal Medicine
DX: Z12.31 Encounter for screening mammogram for malignant neoplasm of breast (principal)
CPT/HCPCS: 77063; 77067

== ENCOUNTER → 2024-01-24 08:30 | Outpatient (BNV) | payer OTHER, SELFPAY | PROVIDERS: PCP Internal Medicine; Visit Provider Radiology Diagnostic Radiology | DX: Z12.31 Encounter for screening mammogram for malignant neoplasm of breast (principal) | CPT/HCPCS: 77063; 77067 ==

== ENCOUNTER 2024-11-04 04:34 | Emergency (ER) | payer OTHER, SELFPAY ==
--- NOTE | ~2024-11-04 | CT_ITS ---
EXAMINATION: CT ABDOMEN PELVIS WITHOUT IV CONTRAST HISTORY: right flank pain COMPARISON: Comparison is made with the prior examination dated 07/29/2023. TECHNIQUE: CT scan of the abdomen and pelvis was performed without contrast using standard departmental protocol. Coronal and sagittal reformatted images were generated and reviewed. Oral contrast material was not administered per department protocol. This CT exam was performed with one or more of the following dose reduction techniques: automated exposure control, adjustment of the mA and/or kV according to patient size, use of iterative reconstruction technique. DLP: 327 mGy-cm FINDINGS: LOWER CHEST: The visualized lung bases are clear. There is no pleural effusion. CARDIOVASCULATURE: The heart is normal in size. There is no pericardial effusion. LIVER: The liver is normal in size and contour. The liver has an unremarkable unenhanced appearance. GALLBLADDER / BILE DUCTS: The gallbladder is unremarkable. There is no intra or extrahepatic biliary ductal dilatation. SPLEEN: The spleen is normal in size and has an unremarkable unenhanced appearance. PANCREAS: The pancreas has an unremarkable unenhanced appearance. ADRENAL GLANDS: Unremarkable. KIDNEYS/RETROPERITONEUM: There is a 3 mm nonobstructing calculus in an interpolar calyx of the right kidney. No left renal calculi are identified. There is no hydronephrosis or hydroureter. LYMPH NODES: No retroperitoneal lymphadenopathy is identified in the abdomen or pelvis. VASCULATURE: The abdominal aorta is normal in caliber. MESENTERY/PERITONEUM: No free fluid. No masses. There is no free intraperitoneal gas. STOMACH: The stomach is collapsed, limiting evaluation. SMALL BOWEL: The small bowel is normal in caliber. COLON: There is a large amount of stool throughout the colon. APPENDIX: The appendix is not seen, however no inflammatory changes are seen adjacent to the cecum. URINARY BLADDER/PELVIC ORGANS: The urinary bladder is unremarkable. The uterus has an unremarkable unenhanced appearance. BONES / SOFT TISSUES: No suspicious bony or soft tissue abnormalities. CT/CT abdomen pelvis wo IV con IMPRESSION: 1. 3 mm nonobstructing right renal calculus. No hydronephrosis or ureteral calculi. 2. Large amount of stool throughout the colon. Electronically signed by: Andres Lundy MD 11/04/2024 08:08 AM EDT RP
[2024-11-04 04:38] VITALS: PULSE 70; RESP 16; TEMP 35.7; O2SAT 99; BMI 22.7
[2024-11-04 04:46] VITALS: BP 114/59; PULSE 64
[2024-11-04 05:08] LABS: MANUAL DIFF FLAG NO
[2024-11-04 05:09] LABS: Basophils Percent Auto 0.6 % (0-2); Eosinophils Absolute Auto 0.2 X10*3/uL (0.0-0.4); Eosinophils Percent Auto 3.1 % (0-4); Hematocrit 39.9 % (37.0-47.0); Hemoglobin 13.8 g/dl (12.0-16.0); Imm Gran Abs Auto 0.01 X10*3/uL (0.00-0.03); Imm Gran Pct Auto 0.2 % (0.0-0.4); Lymphocytes Absolute Auto 2.9 X10*3/uL (1.2-4.9); Lymphocytes Percent Auto 45.5 % (20-40); Mean Corpuscular HGB Conc 34.6 g/dl (31.0-35.0); Mean Corpuscular Hemoglobin 32.2 pg (27.0-33.0); Mean Platelet Volume 9.3 fL (9.4-12.3); Monocytes Absolute Auto 0.3 X10*3/uL (0.1-1.2); Monocytes Percent Auto 5.3 % (2-11); Neutrophils Absolute Auto 2.9 x10*3/uL (2.0-8.3); Neutrophils Percent Auto 45.3 % (45-73); Platelet Count 213 X10*3/uL (160-400); Red Blood Count 4.29 X10*6/uL (4.20-5.50); Red Cell Distribution Width 11.9 % (11.0-16.0); White Blood Count 6.4 X10*3/uL (4.8-10.8)
[2024-11-04 05:24] LABS: Alanine Aminotransferase 24 U/L (0-31); Albumin Level 4.2 g/dL (3.5-5.0); Alkaline Phosphatase 68 U/L (39-117); Anion Gap 11 (12-20); Aspartate Amino Transferase 29 U/L (5-31); Bilirubin Total 0.3 mg/dL (0.0-1.0); Blood Urea Nitrogen 15 mg/dL (9-16); Calcium 9.2 mg/dL (8.4-10.2); Carbon Dioxide 26 mmol/L (22-29); Chloride 108 mmol/L (96-108); Creatinine Clr Calc Pharmacy 61.4; Estimated Glomerular Filt Rate > 60; Glucose Random 92 mg/dL (60-115); Potassium 3.7 mmol/L (3.3-5.1); Sodium 141 mmol/L (135-145); Total Protein 6.5 g/dL (6.5-8.0)
--- NOTE | 2024-11-04 06:03 | PC.NURSE ---
Ua collected and sent.
[2024-11-04 06:05] LABS: Appearance Urine Clear; Color Urine Yellow; Glucose Urine UA Negative (Negative); Leukocyte Esterase Urine Small (1+) (Negative); Nitrite Urine Negative (Negative); PH 6.5 (5.0-9.0); Specific Gravity - Urine 1.025 (1.005-1.025); UMIC TRIGGER UACC YES; Urine Blood Small (1+) (Negative); Urine Ketones Negative (Negative); Urine Protein Negative (Neg-Trace)
[2024-11-04 06:09] LABS: Bacteria Urine None Seen (None Seen); Hyaline Casts Urine 0-2 /LPF (0-2); UACC Culture Trigger YES
--- NOTE | 2024-11-04 06:33 | PC.NURSE ---
pt awaiting to be seen by provider.
--- NOTE | 2024-11-04 07:17 | ED_ITS ---
HPI - Back Pain/Injury General Chief Complaint: Back Pain/Injury Stated Complaint: lower right back pain Time Seen by Provider: 11/04/24 07:07 Source: patient Mode of arrival: ambulatory Limitations: no limitations History of Present Illness ED Provider: HPI Narrative: Patient is presenting with right lower back pain, dysuria, hematuria, not on a. , also had some diarrhea, finished a course of antibiotics for right hand infection, the antibiotics were finished 3 days ago. This is given for what sounds like to me at recurrent cyst and not an actual abscess and she has had issues with the hand but with that said the this is not what brings her in today. Otherwise no abdominal pain and no nausea at this time. No chest pain or shortness of breath reported. There is no injury, no drug use no alcohol use disorder, she is on hormone replacement therapy and a medication for depression. Related Data Home Medications ?Medication ?Instructions ?Recorded ?Confirmed fexofenadine 180 mg tablet 180 mg PO DAILY 11/20/23 11/20/23 magnesium oxide 300 mg PO DAILY 11/20/23 11/20/23 melatonin 3 mg tablet 3 mg PO BEDTIME PRN Insomnia 11/20/23 11/20/23 sertraline 100 mg tablet 100 mg PO DAILY 11/20/23 11/20/23 Previous Rx's ?Medication ?Instructions ?Recorded L norgest/E estradiol-E estrad 1 tab PO DAILY #182 ea 10/28/24 0.15 mg-30 mcg (84)/10 mcg(7) tabs,3mos (Simpesse) lidocaine 4 % topical patch 1 patch topical DAILY PRN pain #10 11/04/24 (Aspercreme (lidocaine)) ea oxycodone 5 mg tablet 5 mg PO Q12H PRN pain 2 days #4 11/04/24 tabs Allergies Allergy/AdvReac Type Severity Reaction Status Date / Time codeine [CODEINE] Allergy Mild RASH Verified 11/04/24 04:41 Review of Systems 2 Constitutional: Constitutional: Reports as per [facility] Past Medical History Medical History Hx of squamous cell carcinoma ETOH abuse Anxiety No known health problems Surgical History Hx of breast surgery History of surgery on right wrist Social History Social History Patient Tobacco Use Status: Former Tobacco user Advance Directives: No Do you have a plan to hurt others: No Plan Physical Exam 2 Vital Signs: Vital Signs: Last Vital Signs Temp 96.3 F L 11/04/24 04:38 Pulse 64 11/04/24 04:46 Resp 16 11/04/24 04:38 BP 114/59 L 11/04/24 04:46 Pulse Ox 99 11/04/24 04:38 O2 Del Method Room Air 11/04/24 04:38 BMI result Body Mass Index 22.7 Const: Other: * Gen: ?Overall well-appearing patient * CV: RRR, no obvious murmurs appreciated * Resp: ?No wheezing rales rhonchi no stridor moving air well * Abd: ?Bowel sounds are present, no tenderness no rebound no rigidity, no CVA tenderness * MSK: FROM, strength 5/5 all extremities, motor sensory intact bilateral lower extremities, no midline muscle tenderness, there is right-sided paraspinal tenderness * Skin: Warm, dry, intact, no rashes to the back * Neuro: ?Alert and oriented x3, moving upper and lower extremities symmetrically, no obvious facial asymmetry noted Medications Administered Discontinued Medications Generic Name Dose Route Start Last Admin Trade Name Ulisesq PRN Reason Stop Dose Admin Ketorolac Tromethamine 15 mg 11/04/24 07:16 11/04/24 07:35 Ketorolac Tromethamine 15 Mg/Ml Vial IM 11/04/24 07:17 15 mg ONCE ONE Administration Lidocaine 1 patch 11/04/24 07:16 11/04/24 07:36 Lidocaine 4 % Patch Adh..Patch TRANSDERMA 11/04/24 07:17 1 patch ONCE ONE Administration Protocol Medical Decision Making Medical Decision Making [facility] Narrative: 07:20 patient evaluated with back pain, and hematuria, she has had hematuria in the past, discussed care, we will opt out for noncontrast CT, abdominal exam is entirely benign I do not anticipate any ovarian torsion, tubo-ovarian abscess, appendicitis or diverticulitis, she is on control pills, she is not . We will medicate for pain obtain CT. Differential Diagnosis Differential Diagnoses: The differential diagnosis associated with the presentation includes Diskitis, osteomyelitis, spinal epidural abscess, cauda equina, musculoskeletal pain Admission/Observation Consideration of admission/observation: Escalation of care including admission/observation considered Patient is nontoxic appearing, renal function intact Lab Data MDM Lab Attestation statement: I reviewed the patient's lab results. 11/04/24 05:04 11/04/24 05:04 Labs: Lab Results 11/04/24 11/04/24 Range/Units 05:04 05:58 WBC 6.4 (4.8-10.8) X10*3/uL RBC 4.29 (4.20-5.50) X10*6/uL Hgb 13.8 (12.0-16.0) g/dl Hct 39.9 (37.0-47.0) % MCV 93.0 (80.0-98.0) fL MCH 32.2 (27.0-33.0) pg MCHC 34.6 (31.0-35.0) g/dl RDW 11.9 (11.0-16.0) % Plt Count 213 (160-400) X10*3/uL MPV 9.3 L (9.4-12.3) fL Immature Gran % (Auto) 0.2 (0.0-0.4) % Neut % (Auto) 45.3 (45-73) % Lymph % (Auto) 45.5 H (20-40) % Faulkner % (Auto) 5.3 (2-11) % Eos % (Auto) 3.1 (0-4) % Baso % (Auto) 0.6 (0-2) % Lymph # (Auto) 2.9 (1.2-4.9) X10*3/uL Faulkner # (Auto) 0.3 (0.1-1.2) X10*3/uL Eos # (Auto) 0.2 (0.0-0.4) X10*3/uL Baso # (Auto) 0.0 (0.0-0.2) X10*3/uL Abs Immat Gran (auto) 0.01 (0.00-0.03) X10*3/uL Absolute Neuts (auto) 2.9 (2.0-8.3) x10*3/uL Absolute Nucleated RBC 0.000 (0.0-0.012) X10*3/uL Nucleated RBC % (auto) 0.0 (0.0-0.2) /100WBC Sodium 141 (135-145) mmol/L Potassium 3.7 (3.3-5.1) mmol/L Chloride 108 (96-108) mmol/L Carbon Dioxide 26 (22-29) mmol/L Anion Gap 11 L (12-20) BUN 15 (9-16) mg/dL Creatinine 0.77 (0.5-1.4) mg/dL Estim Creat Clear Calc 61.4 Estimated GFR > 60 Random Glucose 92 (60-115) mg/dL Calcium 9.2 (8.4-10.2) mg/dL Total Bilirubin 0.3 (0.0-1.0) mg/dL AST 29 (5-31) U/L ALT 24 (0-31) U/L Alkaline Phosphatase 68 (39-117) U/L Total Protein 6.5 (6.5-8.0) g/dL Albumin 4.2 (3.5-5.0) g/dL Urine Color Yellow Urine Appearance Clear Urine pH 6.5 (5.0-9.0) Ur Specific Piggott 1.025 (1.005-1.025) Urine Protein Negative (Neg-Trace) mg/dL Urine Glucose (UA) Negative (Negative) mg/dL Urine Ketones Negative (Negative) mg/dL Urine Blood Small (1+) H (Negative) Urine Nitrite Negative (Negative) Ur Leukocyte Esterase Small (1+) H (Negative) Urine RBC 11-20 H (0-2) /HPF Urine WBC 6-10 H (0-5) /HPF Ur Squamous Epith Cells 6-10 (0-2) /HPF Urine Bacteria None Seen (None Seen) Hyaline Casts 0-2 (0-2) /LPF Independent Interpretation I performed an independent interpretation of an: CT Scan Radiology Impression Discussion of test interpretation with radiology: I have reviewed the radiologist's reading. Radiologist Impression: 1. 3 mm nonobstructing right renal calculus. No hydronephrosis or ureteral calculi. 2. Large amount of stool throughout the colon. Discharge Plan Discharge Clinical Impression: Lower back pain Qualifiers: Chronicity: acute Back pain laterality: right Sciatica presence: without sciatica Qualified Code(s): M54.50 - Low back pain, unspecified Patient Disposition: Home, Self-Care Instructions: Acute Low Back Pain (ED) Additional Instructions: Your blood work is reassuring, there was no evidence for any kidney issues, urine does have some blood in it but this is not a new finding, actually I would recommend if you have had hematuria in the past and I have never seen a urologist for this typically recommendation is to follow up with the urology for cystoscopy to make sure the inside of the bladder does not have any inflammation or masses, then needs to be managed by your PCP. Your CAT scan showed that you had a 3 mm stone in the renal system but it is in the upper part of the kidney, this is a common area were folks have stones this is not the cause of the pain you are not passing the stone. I recommend lidocaine patches, continue with Tylenol 975 mg every 6 hours around the clock and ibuprofen 400 mg every 6 hours for the next 2 days, gentle stretches, ice packs and heat packs to the area, you may also opt out to get [id number] capsaicin ointment patches these help as well follow up with the PCP and other issues concerns come back to the ER. I will also provide just 4 tabs of oxycodone if you do not use them just flush abdominal toilet but that is to take only if the above measures do not help and you are not able to sleep. Prescriptions: New lidocaine [Aspercreme (lidocaine)] 4 % adhesive patch,medicated 1 patch topical DAILY PRN (Reason: pain) Qty: 10 0RF oxycodone 5 mg tablet 5 mg PO Q12H PRN (Reason: pain) 2 Days Qty: 4 0RF Rx Instructions: Partial Fill upon patient request. No Action L norgest/e.estradiol-e.estrad [Simpesse] 0.15 mg-30 mcg (84)/10 mcg (7) tablets,dose pack,3 month 1 tab PO DAILY Qty: 182 2RF sertraline 100 mg tablet 100 mg PO DAILY melatonin 3 mg Tablet 3 mg PO BEDTIME PRN (Reason: Insomnia) fexofenadine [Lupe] 180 mg Tablet 180 mg PO DAILY magnesium oxide 300 mg magnesium Tablet 300 mg PO DAILY Print Language: Cameroonian
[2024-11-04] MEDS: Ketorolac Tromethamine 15 MG/ML VIAL IM (07:35)
[2024-11-04] MEDS: Lidocaine 4 % Patch ADH..PATCH 1 PATCH TRANSDERMA (07:36)
[2024-11-04 08:30] VITALS: BP 122/73; PULSE 69; RESP 16; TEMP 36.4; O2SAT 97
== END 2024-11-04 08:31 | disposition home or self-care (01) ==
PROVIDERS: Emergency Provider Emergency Medicine
DX: M54.50 Low back pain, unspecified (principal); R30.0 Dysuria; R31.9 Hematuria, unspecified; R19.7 Diarrhea, unspecified
CPT/HCPCS: 36415; 74176; 80053; 81001; 85025; 87086; 96372; 99284; J1885

== ENCOUNTER → 2024-11-04 07:16 | Outpatient (BNV) | payer OTHER, SELFPAY | PROVIDERS: Emergency Provider Emergency Medicine; Visit Provider Radiology Diagnostic Radiology | DX: N20.0 Calculus of kidney (principal) | CPT/HCPCS: 74176 ==

== ENCOUNTER 2024-11-13 10:01 | Outpatient (AMB) | payer OTHER, SELFPAY ==
--- NOTE | 2024-11-13 10:20 | MHC.PC.OV ---
Vital Signs 11/13/24 10:22 Height 5 ft Weight 53.07 kg BMI 22.8 BP 110/80 Respiration 14 Pulse 75 Pulse Source Pulse Oximeter Temp 97.5 F Temp Source Temporal Artery Scan Pulse Oximetry (%) 99 Oxygen Delivery Method Room Air Intake Visit Reasons: Routine Water Trainer Required: No Accompanied by: Self / Same As Patient Allergies codeine [CODEINE] Allergy (Mild, Verified 11/13/24 10:22) RASH HPI HPI Comments History of Present Illness Details 54-year-old female with history of anxiety, alcohol use disorder, substance use disorder presents to the office today for management of chronic conditions and to establish care. Depression/anxiety-previously well controlled with sertraline. However, she lost her mother unexpectedly in May who had been living with her and since then has had significant anxiety (yi 7 score of 8) as well as some depression (PHQ-9 6). She has started seeing a therapist and has upcoming appointment with Psychiatry at the end of the month. No SI/HI. Alcohol use disorder-in remission, has been sober for 20 years. She is active in AA. She is also been in remission for use of cocaine and prescription narcotics for the same amount of time. She was recently prescribed a short course of oxycodone of the ER last week and did well with this. She has had several ER and urgent care visits over the last few weeks. She was initially seen in an urgent care due to erythema and swelling of the right wrist. There was concern for cellulitis and abscess and she was prescribed Augmentin which did improve the wrist symptoms. However, she then developed yeast infection which she does experience frequently. She was prescribed Diflucan. At subsequent visit for vulvar burning and itching, urine culture was obtained which grew [id number] colony count of mixed bacterial anurag and she was then prescribed Keflex which has exacerbated the use infection symptoms. She was given a course of Diflucan which he was advised to take following the course of Keflex which was prescribed for 7 days. She does chronic issues with the right hand/wrist related to osteoarthritis. Has upcoming appointment with [facility] She was then seen in our ED for evaluation of low back pain. In the ED, no leukocytosis. Renal function electrolyte levels were normal. Urinalysis did show small amount of hematuria which appears chronic. There were some leukocytes but urine culture was negative. CT of the abdomen/pelvis showed a 3 mm nonobstructing right renal calculus without any hydronephrosis or ureteral calculi. She denies any lisset hematuria. Health maintenance: Last screening negative for malignancy. Has upcoming appointment with vice president network development, advised to have records sent to the office. Last colonoscopy 11/2023, 10 year follow-up advised. Dr. Marrero ROS: General: No fevers, malaise, unintentional weight loss HEENT: No blurred vision, diplopia. No sore throat, nasal congestion, rhinorrhea, sinus pain, ear pain Cardiovascular: No chest pain, palpitations, or leg edema Respiratory: No shortness of breath, wheezing, cough GI: No abdominal pain, nausea, vomiting, diarrhea, constipation, melena, hematochezia : No dysuria, lisset hematuria, increased urinary frequency, decreased urinary output TRAINING TECHNICIAN: see hpi MSK: No myalgia, back pain Neuro: No headaches, weakness, paresthesias Psych: see hpi Skin: No rashes or lesions EXAM: Constitutional - Awake and Alert, No apparent distress Eyes - PERRL Cardiovascular - S1S2, RRR, No edema Respiratory - Normal lung expansion, Normal respiratory effort, No respiratory distress, CTA bilaterally Extremities - no calf tenderness bilaterally, no swelling Skin - Warm/Dry Neurological - Alert & oriented x3 Psychological - Appropriate affect [facility] Medical History (Updated 11/13/24 @ 11:04 by VALENTÍN Jensen) Osteoarthritis of right hand Hx of squamous cell carcinoma ETOH abuse Anxiety No known health problems Surgical History (Updated 11/13/24 @ 07:40 by Ruth Mead) History of colonoscopy (~11/22/23) Hx of breast surgery History of surgery on right wrist Social History Patient Tobacco Use Status: Former Tobacco user Physical exam (Primary Care) Vital Signs: Last Vital Signs Temp 97.5 F 11/13/24 10:22 Pulse 75 11/13/24 10:22 Resp 14 11/13/24 10:22 BP 110/80 11/13/24 10:22 Pulse Ox 99 11/13/24 10:22 Oxygen Delivery Method Room Air 11/13/24 10:22 BMI result Body Mass Index 22.8 Tobacco/Smoking Status: Tobacco use Status Patient Tobacco Use Status Former Tobacco user 11/13/24 10:25 Coding Level of Care Code New Pt Level 4 (29375) Complex EM visit Add On G2211 Diagnoses Depression with anxiety F41.8 Vulvovaginal candidiasis B37.31 Microscopic hematuria R31.29 Alcohol use disorder F10.90 Assessment & Plan Assessment & Plan (1) Depression with anxiety: Code(s): F41.8 - Other specified anxiety disorders Category: Medical Plan: Uncontrolled. PHQ-9 score 6, yi 7 score 8. Continue sertraline 100 mg daily follow-up with psychiatry as scheduled at the end of the month. Continue following with counselor. No alarm symptoms, no SI/HI (2) Vulvovaginal candidiasis: Code(s): B37.31 - Acute candidiasis of vulva and vagina Category: Medical Plan: Advised to discontinue Keflex given urine culture results from urgent care are negative. Advised to take Diflucan given ongoing symptoms, follow-up with vice president network development as needed. Also recommend boric acid suppositories for pH maintenance (3) Microscopic hematuria: Code(s): R31.29 - Other microscopic hematuria Category: Medical Plan: Chronic, unclear etiology. Possibly related to the nonobstructing renal calculus. Patient does wish to pursue urology referral as recommended by the ED provider and referral is placed. There has been no evidence of UTI. She is a former smoker. (4) Alcohol use disorder: Code(s): F10.90 - Alcohol use, unspecified, uncomplicated Category: Medical Plan: In remission. Commended for 20 years of sobriety and advised to continue with support groups and efficacy Plan Follow-up in the office in 6 months for annual physical exam. Urology referral placed. Labs ordered. Labs reviewed from the ED as well as provider know and CT scan of the abdomen pelvis. Orders: Orders Lipid Panel Today Z13.220 - Encounter for screening for lipoid disorders Referrals Urology Referral R31.29 - Other microscopic hematuria Medications: New fluconazole 150 mg PO Q3D 2 tabs 0RF 2 doses Discontinued oxycodone Partial Fill upon patient request. Discontinued Reason: Patient no longer taking 5 mg PO Q12H 2 days PRN 4 tabs 0RF pain Patient Instructions: Follow up with urology Change underwear after working out or sweating often. Boric acid suppositories Follow up with therapy and psychiatry Discontinue keflex and take diflucan
[2024-11-13 10:22] VITALS: BP 110/80; PULSE 75; RESP 14; TEMP 36.4; O2SAT 99; BMI 22.8
--- OUTSIDE RECORDS SUMMARY | 2024-11-13 10:47 | XMS_ITS | Patient Health Record ---
Author Organization [facility] Address [address] [place] [address] Care Team Providers Care Typesetter Perforator Operator Name Role Phone Bryce Jeffery MD Primary Care Provider Andres Reynolds Unavailable [phone] Allergies Allergen (clinical drug ingredient) Drug/Non Drug Allergy documented on EMR Reaction Allergy Type Onset Date Status codeine Codeine Unknown Drug Allergy Active Results Component Value Reference Range Notes Pathology Reviewed date:12/18/2023 07:26:10 PM Interpretation: Performing Lab:[facility], [address] [place] [phone] Notes/Report: Name: Jazmine Trujillo Age/Sex: 53/F : 1970 Unit#: [id number] Attend Dr: Andres Marrero MD Re11/22/23 Status : [facility] Location: [facility] Disch: SPEC : [id number] RECD : 11/22/23 STATUS: HELIO RITCHIE NUM: [id number] ANGELES: 11/22/23-[address] [facility] [address]: Andres Marrero MD ENTERED: 11/22/23-03 26 SP TYPE: Surgical OTHR DR: Bryce Jeffery MD ORDERED: HE Stain/9, Gross Micro L4/3, IHC, Special st. 2/3, H. pylori, AB/PAS/3 Diagnosis A. Duodenum, descend ing, biopsy: Duodenal mucosa with preserved villi and no specific change; no evidence of celiac disease. B. Gastric antrum, b iopsy: Gastric antral mucosa with reactive changes, congestion, and focal minimal chroni c inactive inflammation; negative for H pylori, intestinal metaplasia and dysplasia. C. Esophagogastric j unction, at 35 cm, biopsy: Squamocolumnar mucosa with mild chronic active inflammation and detached fragment of fibrino-inflammatory exudate consistent with ulcer; negative for intestinal metaplasia and dysplasia. Clinical History Pre-Op Dx: Abd pain, screening Post-Op Dx: Hiatal h ernia, hemorrhoids, diverticulosis Microscopic Description Microscopic sections reviewed. Immunostain for H. pylori on B is negative. AB/PAS on A is negative for evidenc e of chronic injury. AB/PAS on B and C are negative for intestinal metaplasia. Controls stain appropriately. Material Received A. Descending duodenum, r/o celiac B. Gastric antrum C. EG Junction at 35 Gross Description Received in three parts. Part A: Received in formalin labeled ?descending duodenum? are 3 warner-pink irregular and rectangular tissue f ragments ranging from 0.3-0.4 cm, submitted in toto in a cassette labeled A. Part B: Received in formalin labeled ?gastric antrum? are 3 warner-pink irregular tissue fragments ranging fr om 0.25-0.35 cm, submitted in toto in a cassette labeled B. Part C: Received in formalin labeled ?EG junction at 35? are 4 warner-pink irregular tissue fragments ranging fr om 0.1-0.25 cm, submitted in toto in a cassette labeled C. CONTINUED ON NEXT PAGE Name: Jazmine Trujillo Age/Sex: 53/F : 1970 Unit#: [id number] Attend Dr: Andres Marrero MD Re11/22/23 Status : [facility] Location: [facility] Disch: SPEC : [id number] RECD : 11/22/23 STATUS: HELIO DEVINELora NUM: [id number] ANGELES: 11/22/[address] [facility] [address]: Andres Marrero MD ENTERED: 11/22/23 TYPE: Surgical OTHR DR: Bryce Jeffery MD ORDERED: HE Stain/9, Gross Micro L4/3, IHC, Special st. 2/3, H. pylori, AB/PAS/3 Gross Description (Continued) CEDS Special studies orde red and performed: Immunostain for H. pylori on B1; AB/PAS stains on A1, B1 and C1. Copies To: Bryce Jeffery MD [address], [address] [place] [address] [address] [facility] [address] [place], [place] [id number] Signed (si gnature on file) Joanna Nina 11/26/23 1227 END OF REPORT Reason For Referral No Information Medications Medication SIG (Take, Route, Frequency, Duration) Notes Start Date End Date Status Simpesse 0.15-0.03 &0.01 MG TAKE 1 TABLET BY MOUTH EVERY DAY Oral for 91 Active Melatonin 3 MG 1 tablet at bedtime as needed Orally Once a day for 30 day(s) 08/02/2023 Active Magnesium 300 MG 1 capsule with a deshaun l Orally Once a day for 30 day(s) 08/02/2023 Active Lupe Allergy 180 MG 1 tablet Swallow whole with water; do not take with fruit juices. Orally Once a day for 30 day(s) 08/02/2023 Active Omeprazole 40 MG TAKE 1 CAPSULE BY MO UTH EVERY DAY FOR 30 DAYS for 90 Active Sertraline HCl 100 MG TAKE 1 TABLET BY M OUTH EVERY DAY Oral for 90 Active Immunizations Vaccine Route Administration Date Status Comme nts Influenza Unknown 08/02/2023 Refused Social History Tobacco Use: Social History Observation Description Date Details (start date - stop date) Former Smoker NA - NA Tobacco Use/Smoking Question Answer Notes Patient is a former smoker Alcohol Screen Question Answer Notes Did you have a drink containing alcohol in the p ast year? No Points 0 Interpretation Negative Section Notes: Alcohol and substance abuse with sobriety since 2001 Nonsmoker Problems Problem Type SNOMED Code ICD Code Onset Dates Problem Status W/U Status Risk Notes Problem Epigastric pain (11574172) Epigastric abdominal pain (R10.13) Active confirmed Problem Screening for malignant neoplasm of colon (084882150) Encounter for screening for malignant neoplasm of colon (Z12.11) Active confirmed Problem Epigastric pain (23803332) Abdominal pain, acute, epigastric (R10.13) Active confirmed Encounters Encounter Location Date Provider Diagnosis [facility] Outpatient [address] [facility] [place] [phone] 11/22/2023 Andres Elida Encounter for screening colonoscopy Z12.11 ; Hiatal hernia K44.9 and Abdominal pain R10.9 [facility] [address] [place] [address] 02/04/2024 Andres Marrero Assessments Encounter Date Diagnosis (ICD Code) Assessment Notes Treatment Notes Treatment Clinical Notes Section Notes 11/22/2023 Encounter for screening colonoscopy (ICD-10 - Z12.11) 11/22/2023 Hiatal hernia (ICD-10 - K44.9) 11/22/2023 Abdominal pain (ICD-10 - R10.9) Plan Of Treatment Pending Test Test Name Order Date NUC HIDA SCAN 08/12/2023 US abdomen limited 08/02/2023 Future Test Test Name Order Date COLONOSCOPY 08/02/2023 Insurance Providers Payer Name Payer Address Payer Phone Subscriber Number Group Number Insured Name Patient Relationship to Insured Coverage Start Date Coverage End Date [facility] [address] [facility] [place] [phone] [id number] RULA MORALES Self - patient is the insured Medical (General) History Medical History History ICD Code Anxiety Denies [place],DM,CVA,Lung disease,renal dise ase Abdominal pain with ER visit on July 29, 2023 with a completely negative workup including laboratories and CT scan Alcohol and substance abuse with sobriet y since 2001 Surgical History Surgery Date(Month/Year) Right wrist surgery Breast surgery Squamous cell cancer on left hand Hospitalization History Reason Date(Month/Year)
== END 2024-11-13 11:35 | disposition home or self-care (01) ==
LOC: HO.HMCHD 10:01
PROVIDERS: Visit Provider Physician Assistant
DX: F41.8 Other specified anxiety disorders (principal); B37.31 Acute candidiasis of vulva and vagina; R31.29 Other microscopic hematuria; F10.90 Alcohol use, unspecified, uncomplicated

== ENCOUNTER 2025-01-07 15:13 | Outpatient (AMB) | payer OTHER, SELFPAY ==
--- OUTSIDE RECORDS SUMMARY | 2025-01-07 15:16 | XMS_ITS | Patient Health Record ---
Author Organization [facility] Address [address] [place] [address] Care Team Providers Care Key Account Coordinator Name Role Phone SHANTA VELASCO M.D. Primary Care Provider GLORIA Montes Unavailable [phone] Allergies Allergen (clinical drug ingredient) Drug/Non Drug Allergy documented on EMR Reaction Allergy Type Onset Date Status codeine Codeine Rash Drug Allergy Active Results Component Value Reference Range Notes PDF Report Reviewed date:04/02/2024 01:34:04 PM Interpretation: Performing Lab:[facility] [place], [address], [address], [place], Phone - [phone], Director - [place] Notes/Report: No. of containers..01 ThinPrep Vial Other..............Oral Contraceptives Dates / Results....2017 LMP / Prev Treat...ETH=[id number] Clinical Information:[id number] No Culture 30 Plus Reviewed date:04/02/2024 01:33:57 PM Interpretation: Performing Lab:[facility] [place], [address], [address], [place], Phone - [phone], Director - [facility] Notes/Report: No. of containers..01 ThinPrep Vial Other..............Oral Contraceptives Dates / Results....2017 LMP / Prev Treat...ABY=[id number] Clinical Information:[id number] DIAGNOSIS: NEGATIVE FOR INTRAEPITHELIAL LESION OR MALIGNANCY. THIS SPECIMEN WAS RESCREENED PART OF OUR EQUIPMENT MAINTENANCE TECHNICIAN PROGRAM. Specimen adequacy: Satisfact ory for evaluation. No endocervical component is identified. Clinician provided ICD10: PBC Z01.419 Performed by: Rula cano, Content Creation Manager (ASCP) QC reviewed by: Braxton valle, Content Creation Manager (ASCP) . . Note: The Pap smear is a screening test designed to aid in the detection of premalignant and malignant conditions of the uterine cervix. It is not a diagnostic procedure and should not be used as the sole means of detecting cervical cancer. Both false-positive and false-negative reports do occur. . Test Methodology: This liquid based ThinPrep(R) pap test was screened with the use of an image guided system. HPV Aptima Negative Negative This nucleic acid amplification test detects fourteen high-risk HPV types (16,18,31,33,35,39,45,51,52,56, 58,59,66,68) without differentiation. HPV Genotype Reflex Criteria not met, HPV Genotype not performed. Reason For Referral No Information Medications Medication SIG (Take, Route, Frequency, Duration) Notes Start Date End Date Status Omeprazole 40 MG TAKE 1 CAPSULE BY MO UTH EVERY DAY FOR 30 DAYS Oral; Duration: 90 Days Active Sertraline HCl 100 MG TAKE 1 TABLET BY M OUTH EVERY DAY Oral; Duration: 90 Days Active Simpesse 0.15-0.03 &0.01 MG TAKE 1 TABLE T BY MOUTH EVERY DAY Oral; Duration: 91 Days Active Cyclobenzaprine HCl 5 MG TAKE 1-2 TABLET S BY MOUTH NEEDED AT BEDTIME FOR TMJ SPASMS, USE WITH WARM COMPRESS Oral; Duration: 15 Days Active Magnesium Active Melatonin Active Lupe Allergy Acti ve Social History Tobacco Use: Social History Observation Description Date Details (start date - stop date) Former Smoker NA - NA AUDIT-C (Standard) Question Answer Notes Did you have a drink containing alcohol in the p ast year? No Points 0 Interpretation Negative Tobacco Control (Standard) Question Answer Notes Tobacco use: Former smoker How long has it been since you last smoked? Jfolimpia ter than 10 years Section Notes: She is in recovery from alco hol and drug use Problems Problem Type SNOMED Code ICD Code Onset Dates Problem Status W/U Status Risk Notes Problem Squamous cell carcinoma of upper extremity (643448085) Squamous cell carcinoma of skin of left upper limb, including shoulder (C44.629) Active confirmed Problem Mild recurrent major depression (55412910) Major depressive disorder, recurrent, mild (F33.0) Active confirmed Problem Anxiety disorder (870474133) Anxiety disorder, unspecified (F41.9) Active confirmed Problem Gastro-esophagea l reflux disease without esophagitis (497375869) Gastro-esophage al reflux disease without esophagitis (K21.9) Active confirmed Vital Signs Temperature 97.7 degrees Fahrenheit 03/26/2024 Blood pressure diastolic 82 mm Hg 03/26/2024 Height 59 in 03/26/2024 Blood pressure systolic 122 mm Hg 03/26/2024 Weight 120 lbs 03/26/2024 BMI 24.23 kg/m2 03/26/2024 Encounters Encounter Location Date Provider Diagnosis [facility] [address] [place] [address] 03/26/2024 GLORIAOlimpia ERVINMORALES Encounter for gynecological examination (general) (routine) without abnormal findings Z01.419 and Encounter for screening mammogram for malignant neoplasm of breast Z12.31 Assessments Encounter Date Diagnosis (ICD Code) Assessment Notes Treatment Notes Treatment Clinical Notes Section Notes 03/26/2024 Encounter for gynecological examination (general) (routine) without abnormal findings (ICD-10 - Z01.419) During the visit, the following areas of concern were addressed: Discussed cervical cancer screening with either cytology alone every 3 years or high risk HPV co-testing every 5 years as per ASCCP guidelines. Advised continued annual pelvic exams. Patient encouraged to increase her level of exercise. SBE technique encouraged/tau ght. Patient reminded when annual mammogram is due. Patient encouraged to keep colon screening up to date. 03/26/2024 Encounter for screening mammogram for malignant neoplasm of breast (ICD-10 - Z12.31) Plan Of Treatment Pending Test Test Name Order Date MM Digital Screening Mammogram 3D 2023 Next Appt Details Provider Name:GLORIA Wong, 04/02/2025 08:30:00 AM, [address], [address], [place], [address], Insurance Providers Payer Name Payer Address Payer Phone Subscriber Number Group Number Insured Name Patient Relationship to Insured Coverage Start Date Coverage End Date [employer] [address] [place] [id number] RULA MORALES Self - patient is the insured Medical (General) History Medical History History ICD Code Anxiety disorder, unspecified F41.9 Major depressive disorder, recurrent, mi ld F33.0 Gastro-esophageal reflux disease without esophagitis K21.9 Bilateral temporomandibular joint disord er, unspecified M26.603 Squamous cell carcinoma of skin of left upper limb, including shoulder C44.629 Surgical History Surgery Date(Month/Year) Mohs 2020 Right Wrist Bone Removal 2020 Mammoplasty 1993 Hospitalization History Reason Date(Month/Year) Stomach Issue 07/2023
--- OUTSIDE RECORDS SUMMARY | 2025-01-07 15:16 | XMS_ITS | Patient Health Record ---
Author Organization [facility] Address [address] [place] [address] Care Team Providers Care Tax Credit Leasing Consultant Name Role Phone Latia (RETIRED) Bryce NAIR Primary Care Provide Andres Hammonds Unavailable [phone] Allergies Allergen (clinical drug ingredient) Drug/Non Drug Allergy documented on EMR Reaction Allergy Type Onset Date Status codeine Codeine Unknown Drug Allergy Active Reason For Referral No Information Medications Medication [...] Status W/U Status Risk Notes Problem Epigastric abdominal pain (R10.13) Active confirmed Problem Screening for malignant neoplasm of colon (585060678) Encounter for screening for malignant neoplasm of colon (Z12.11) Active confirmed Problem Epigastric pain (73308297) Abdominal pain, acute, epigastric (R10.13) Active confirmed Encounters Encounter Location Date Provider Diagnosis [facility] [address] [place] [address] 02/04/2024 Andres Marrero Plan Of Treatment Pending Test Test Name Order Date NUC HIDA SCAN 08/12/2023 US abdomen limited 08/02/2023 Future Test Test Name Order Date COLONOSCOPY 08/02/2023 Insurance Providers Payer Name Payer Address Payer Phone Subscriber Number Group Number Insured Name Patient Relationship to Insured Coverage Start Date Coverage End Date [facility] [address] [place] [phone] [id number] URLA MORALES Self - patient is the insured Medical (General) History Medical History History ICD Code Anxiety Denies [place],DM,CVA,Lung disease,renal dise ase Abdominal pain with ER visit on July 29, 2023 with a completely negative workup including laboratories and CT scan Alcohol and substance abuse with sobriet y since 2001 Surgical History Surgery Date(Month/Year) Right wrist surgery Breast surgery Squamous cell cancer on left hand Hospitalization History Reason Date(Month/Year)
--- NOTE | 2025-01-07 15:20 | A.OFFVIS_ITS ---
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 She has a past medical history of osteoarthritis of the right hand, ETOH abuse with sobriety since 2001, and anxiety. She presents to the office today as a new patient for nephrolithiasis as well as microscopic hematuria. In discussion with the patient today she reports having recently seeked emergency room care for ongoing lumbar discomfort she had been experiencing at which time a CT of the abdomen was ordered and performed in recommendations were reviewed for urology referral for further assessment evaluation. These results reviewed and communicated with the patient today. 11/25 3 mm nonobstructing right renal calculus. No hydronephrosis or ureteral calculi noted. She does report a previous history of nephrolithiasis and had surgical intervention with doctors was risky in the past. She also discusses a previous history of recurrent urinary tract infections and yeast infections. She does continue to experience ongoing lumbar discomfort however has been attempting to perform more stretching and does feel this has been helpful. We did discussed potential causes of nephrolithiasis as well as microscopic hematuria. We discussed further workup in risks and benefits of these interventions. She does report baseline urinary frequency however feels she is self managing. She denies incontinence, nocturia, hematuria, dysuria, foul smelling urine, changes to urinary stream, fever, and or chills. She is happy with her current voiding parameters. She discusses the recent loss of her mother late last year in discusses following up with her psychiatrist for ongoing management of insomnia and anxiety. In office urinalysis results reviewed with the patient today. Microscopic hematuria noted. She does have a previous history of drug abuse however discusses her sobriety over the last 20 years. She also discusses her ongoing issues with her right wrist in his due to follow-up with [facility]. All questions were answered. She otherwise offers no other issues or concerns at this time. FORMERLY [facility], [facility] Medical History Osteoarthritis of right hand Hx of squamous cell carcinoma ETOH abuse Anxiety No known health problems Surgical History (Updated 11/13/24 @ 07:40 by Ruth Mead) History of colonoscopy (~11/22/23) Hx of breast surgery History of surgery on right wrist Social History Patient Tobacco Use Status: Former Tobacco user Review of Systems Const All systems reviewed & are unremarkable except as noted in HPI and below Physical Exam Const General: cooperative, healthy appearing, comfortable, no acute distress, well developed, alert and awake Orientation/consciousness: patient oriented x3 Limitations: no limitations HEENT Head: Yes normal to inspection, Yes normocephalic and Yes atraumatic Ears: hearing grossly normal bilaterally Eyes General: appearance normal, both eyes and all related structures Neck Neck: Yes normal visual inspection and Yes trachea midline Chest Chest palpation & inspection: normal inspection of the chest Resp Effort & Inspection: normal respiratory effort and able to speak in complete sentences Cardio Rate: regular rate GI Inspection: Yes normal to inspection General: Yes no CVA tenderness Back/Spine/Pelvis Back: no CVA tenderness Skin General skin exam: no rashes or lesions noted Neuro General: patient oriented x3 Extrem General: Yes normal to inspection Psych Appearance: grossly normal and well kempt Mental Status: mental status grossly normal Speech and movement: Normal speech and movement present and Clear speech present Affect: normal affect Attitude: cooperative Thought process: Normal thought process present Thought content: Normal thought content present Insight: Fair insight present (Psych) Judgement: Fair judgement present (Psych) Office Procedures Post Void Residual Post Residual Void Post Void Residual (PVR): 0 [id number] Void Residual by ultrasound Results AMB Urinalysis, Automated UA Leukoctes 0 Josh/uL Last Edit by DENZEL Luevano on 01/07/25 15:57 UA Nitrite Negative Last Edit by DENZEL Luevano on 01/07/25 15:57 UA Urobilinogen 3.5 mg/dL Last Edit by Negrito Rinaldi [facility] on 01/07/25 15:5 7 UA Protein 0 mg/dL Last Edit by Negrito Rinaldi [facility] on 01/07/25 15:57 UA pH 6.5 Last Edit by Negrito Rinaldi [facility] on 01/07/25 15:57 UA Blood 10 Benny/uL Last Edit by Negrito Rinaldi [facility] on 01/07/25 15:57 UA Specific Palmer 1.005 Last Edit by Negrito Rinaldi [facility] on 01/07/25 15: 57 UA Ketone Negative Last Edit by Negrito Rinaldi [facility] on 01/07/25 15:57 UA Bilirubin 0 mg/dL Last Edit by Negrito Rinaldi [facility] on 01/07/25 15:57 UA Glucose 0 mg/dL Last Edit by Negrito Rinaldi [facility] on 01/07/25 15:57 Results Reviewed Results Reviewed: Laboratory Last Values Urine pH (Auto) 6.5 01/07/25 15:57 Specific Palmer (Auto) 1.005 01/07/25 15:57 Urine Protein (Auto) 0 mg/dL 01/07/25 15:57 Glucose (UA)(Auto) 0 mg/dL 01/07/25 15:57 Urine Ketones (Auto) Negative 01/07/25 15:57 Urine Blood (Auto) 10 Benny/uL 01/07/25 15:57 Urine Nitrite (Auto) Negative 01/07/25 15:57 Urine Bilirubin (Auto) 0 mg/dL 01/07/25 15:57 Urine Urobilinogen (Auto) 3.5 mg/dL 01/07/25 15:57 Leukocyte Esterase (Auto) 0 Josh/uL 01/07/25 15:57 Date of Service: 11/04/24 Procedure(s): CT abdomen pelvis wo IV con FINDINGS: LOWER CHEST: The visualized lung bases are clear. There is no pleural effusion. CARDIOVASCULATURE: The heart is normal in size. There is no pericardial effusion. LIVER: The liver is normal in size and contour. The liver has an unremarkable unenhanced appearance. GALLBLADDER / BILE DUCTS: The gallbladder is unremarkable. There is no intra or extrahepatic biliary ductal dilatation. SPLEEN: The spleen is normal in size and has an unremarkable unenhanced appearance. PANCREAS: The pancreas has an unremarkable unenhanced appearance. ADRENAL GLANDS: Unremarkable. KIDNEYS/RETROPERITONEUM: There is a 3 mm nonobstructing calculus in an interpolar calyx of the right kidney. No left renal calculi are identified. There is no hydronephrosis or hydroureter. LYMPH NODES: No retroperitoneal lymphadenopathy is identified in the abdomen or pelvis. VASCULATURE: The abdominal aorta is normal in caliber. MESENTERY/PERITONEUM: No free fluid. No masses. There is no free intraperitoneal gas. STOMACH: The stomach is collapsed, limiting evaluation. SMALL BOWEL: The small bowel is normal in caliber. COLON: There is a large amount of stool throughout the colon. APPENDIX: The appendix is not seen, however no inflammatory changes are seen adjacent to the cecum. URINARY BLADDER/PELVIC ORGANS: The urinary bladder is unremarkable. The uterus has an unremarkable unenhanced appearance. BONES / SOFT TISSUES: No suspicious bony or soft tissue abnormalities. IMPRESSION: 1. 3 mm nonobstructing right renal calculus. No hydronephrosis or ureteral calculi. 2. Large amount of stool throughout the colon. Assessment & Plan Assessment & Plan (1) Microscopic hematuria: Code(s): R31.29 - Other microscopic hematuria Category: Medical (2) Nephrolithiasis: Code(s): N20.0 - Calculus of kidney Category: Medical (3) Urinary frequency: Code(s): R35.0 - Frequency of micturition Category: Medical Plan In office urinalysis results reviewed with the patient today; as not above; will send for urine cytology. PVR 0 mL We discussed potential causes of lower urinary tract symptoms, nephrolithiasis, and microscopic hematuria; we also discussed further treatment options of these urological conditions and risks and benefits of these treatment options. We discussed importance of adequate hydration relation to nephrolithiasis as well as overall health and well-being. We discussed adding 1 oz of lemon juice to water daily. Will continue with surveillance monitoring. We did discussed bladder triggers and irritants. Will obtain renal ultrasound in 6 months Follow-up in 6 months with imaging to be completed prior; or sooner with any issues, concerns, and or questions. Orders: Orders AMB Urinalysis Automated Today Z13.9 - Encounter for screening, unspecified US renal BI 6 Months N20.0 - Calculus of kidney Urine Cytology Today R31.29 - Other microscopic hematuria Patient Instructions: The patient had an opportunity to ask questions regarding the treatment plan. All questions were answered. Physical exam, labs, and imaging were discussed and reviewed in detail. As well as risks, benefits, and discussion of treatment choices. No major barriers to understanding were identified. The patient expressed understanding and agreement with the above treatment plan. The patient was made aware they should contact our office by phone for worsening of their current condition, the appearance of new symptoms, or with any questions or concerns. Compliance is encouraged with any medications and follow up testing that is ordered. It is a privilege to be allowed the opportunity to participate in? your urological care.? Again, if you have any questions or concerns If you have any questions or concerns please do not hesitate to contact me. The office is [phone]. This note is constructed using voice recognition software. While every effort has been made to ensure accuracy temperer errors may have been included. Yours sincerely, NENA Hunter-GLORY Coding Level of Care Code New Pt Level 4 (37658) Diagnoses Microscopic hematuria R31.29 Nephrolithiasis N20.0 Urinary frequency R35.0 CPT Codes Post Residual Void - PVR CPT Code: 22033-Yuch Void Residual by ultrasound ([id number]) Time Spent (min) 45
== END 2025-01-07 16:11 | disposition home or self-care (01) ==
LOC: HO.HUSH 15:14
PROVIDERS: Visit Provider Nurse Practitioner Family
DX: R31.29 Other microscopic hematuria (principal); N20.0 Calculus of kidney; R35.0 Frequency of micturition; Z13.9 Encounter for screening, unspecified
CPT/HCPCS: 99204

== ENCOUNTER 2025-01-07 15:13 | Outpatient (REF) | payer OTHER, SELFPAY | END 2025-01-07 15:14 | disposition home or self-care (01) | LOC: HO.LAB 15:13 | PROVIDERS: Visit Provider Nurse Practitioner Family | DX: N20.0 Calculus of kidney (principal); R31.29 Other microscopic hematuria; R35.0 Frequency of micturition; Z13.89 Encounter for screening for other disorder | CPT/HCPCS: 51798; 81003; 88112 ==

== ENCOUNTER 2025-01-29 08:12 | Outpatient (REF) | payer OTHER, SELFPAY ==
--- OUTSIDE RECORDS SUMMARY | 2023-11-22 05:00 | XMS_ITS ---
Author Organization [facility] Address [address] [place] [id number] Care Team Providers Care Bulk Mail Technician Name Role Phone Latia (RETIRED) , Bryce Primary Care Provide r Andres Pena Unavailable [phone] REASON FOR VISIT screening,epigastric pain Encounters Encounter Location Date Provider Diagnosis [facility] [place] [address], [place] [id number] 11/22/2023 Andres Marrero Encounter for scre ening colonoscopy Z12.11 ; Hiatal hernia K44.9 and Abdominal pain R10.9 Assessments Encounter Date Diagnosis (ICD Code) Assessment Notes Treatment Notes Treatment Clinical Notes Section Notes 11/22/2023 Encounter for screening colonoscopy (ICD-10 - Z12.11) 11/22/2023 Hiatal hernia (ICD-10 - K44.9) 11/22/2023 Abdominal pain (ICD-10 - R10.9) Plan Of Treatment No Information Progress Notes * RULA TRUJILLODOB:[birth year] (54 yo F)Acc No.[id number]:11/22/2023 EGD and COL/MAC Patient: RULA ALAMO Provider: Catarina Marrero MD :1970 A ge:53 Y S ex:Female Date:11/22/2023 Address:[address] [place] [address] Christiano [id number] Pcp:Bryce Jeffery (RETIRED )MD Subjective: * Chief Complaints: * 1 . Screening,epigastric pain. * Medical History: Objective: * Vitals: Assessment: * Assessment: 1. E ncounter for screening colonoscopy - Z12.11 (Primary) 2 . H iatal hernia - K44.9 3 . A bdominal pain - R10.9 Plan: * Treatment: * Procedure Codes: 4 5378 DIAGNOSTIC COLONOSCOPY, 58786 UPPER GI ENDOSCOPY, BIOPSY * * The named appointment provid er may or may not be the originator of this progress note, and it is not deemed complete until electronically signed by the appointment provider. Sign off status: Pending * Provider: Catarina Marrero MD Date: 0 11/22/2023 Generated for Abiola patel/Mehrdad/Harveysmitting on: 0 01/29/2025 08:57 AM EDT
--- OUTSIDE RECORDS SUMMARY | 2023-12-19 10:30 | XMS_ITS ---
Author Organization [facility] Address [address] [place] [address] Care Team Providers Care Knapsack Sprayer Name Role Phone SHANTA VELASCO M.D. 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 Encounter Location Date Provider Diagnosis [facility] [address] [place] [address] 12/19/2023 GLORIA MORALES Plan Of Treatment Next Appt Details Provider Name:GLORIA Wong, 04/02/2025 08:30:00 AM, [address] [facility], [address], [place], [address], Progress Notes * RULA TRUJILLODOB:[birth year] (54 yo F)Acc No.[id number]:12/19/2023 Progress Note Patient: RULA ALAMO Provider: Bello MORALES MD :1970 A ge:53 Y S ex:Female Date:12/19/2023 Address:[address] [place] [address], [id number] Pcp:SHANTA VELASCO M.D. Subjective: * Chief Complaints: * 1 . 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 * Medical History: Objective: * Vitals: Assessment: Plan: * Treatment: * Images: Billing Information: * Visit Code: * Procedure Codes: * Electronic signature of GLROIA MORALES MD on 01/29/2025 at 08:57 AM EDT Sign off status: Pending * Provider: Bello MORALES MD Date: 0 12/19/2023 Generated for Abiola patel/Mehrdad/Damari on: 0 01/29/2025 08:57 AM EDT
--- NOTE | ~2025-01-29 | MM_ITS ---
EXAMINATION: MM SCREENING DIGITAL BREAST TOMOSYNTHESIS, BILATERAL CLINICAL INFORMATION: Screening. Asymptomatic. COMPARISON: Mammography: Comparison is made with available priors TECHNIQUE: Digital breast mammography with tomosynthesis is performed in both the craniocaudal and mediolateral oblique views along with computer-aided detection (CAD). FINDINGS: There are scattered areas of fibroglandular density (ACR BI-RADS breast composition Category b). Reduction mammoplasty. There are no significant masses, abnormal calcifications, or other abnormalities. MM/MM tomosynthesis screening BI IMPRESSION: No mammographic evidence of malignancy. ASSESSMENT: BI-RADS BI-RADS 2 - Benign Findings RECOMMENDATION: Routine annual mammography screening. 1 year F/U This examination should not preclude the clinical evaluation of a suspicious palpable abnormality. This patient's information was entered into a reminder system with a target due date for their next mammogram. Electronically signed by: Tosin Ojeda DO 02/02/2025 10:20 AM EDT
--- OUTSIDE RECORDS SUMMARY | 2025-01-29 08:57 | XMS_ITS | Patient Health Record ---
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 Name Role Phone Latia (RETIRED) Bryce NAIR Primary Care Provide Andres Hammonds Unavailable [phone] Allergies Allergen (clinical drug ingredient) Drug/Non Drug [...] Problem Screening for malignant neoplasm of colon (237470369) Encounter for screening for malignant neoplasm of colon (Z12.11) Active confirmed Problem Epigastric pain (30576259) Abdominal pain, acute, epigastric (R10.13) Active confirmed Encounters Encounter Location Date Provider Diagnosis [facility] [address] [place] [address] 02/04/2024 Andres Marrero Plan Of Treatment Pending Test Test Name Order Date NUC HIDA SCAN 08/12/2023 US abdomen limited 08/02/2023 Future Test Test Name Order Date COLONOSCOPY 08/02/2023 Insurance Providers Payer Name Payer Address Payer Phone Subscriber Number Group Number Insured Name Patient Relationship to Insured Coverage Start Date Coverage End Date [facility] [address] [place] [phone] [id number] RULA MORALES Self - patient is the insured Medical (General) History Medical History History ICD Code Anxiety Denies MT,DM,CVA,Lung disease,renal dise ase Abdominal pain with ER visit on July 29, 2023 with a completely negative workup including laboratories and CT scan Alcohol and substance abuse with sobriet y since 2001 Surgical History Surgery Date(Month/Year) Right wrist surgery Breast surgery Squamous cell cancer on left hand Hospitalization History Reason Date(Month/Year)
--- OUTSIDE RECORDS SUMMARY | 2025-01-29 08:57 | XMS_ITS | Patient Health Record ---
Author Organization [employer] 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 Primary Care Provider Quintin boudreaux MORALESROBERTOA Unavailable [phone] Allergies Allergen (clinical drug ingredient) Drug/Non Drug Allergy documented on EMR Reaction Allergy Type Onset Date Status codeine Codeine Rash Drug Allergy Active Results Component Value Reference Range Notes [id number] IGP No Culture 30 Plus Reviewed date:04/02/2024 01:33:57 PM Interpretation: Performing Lab:[facility] [place], [address], [address], [place], Phone - [phone], Director - [facility] Notes/Report: Clinical Information:[id number] LMP / Prev Treat...GAW=[id number] Dates / Results....2018 Other..............Oral Contraceptives No. of containers..01 ThinPrep Vial DIAGNOSIS: NEGATIVE FOR INTRAEPITHELIAL LESION OR MALIGNANCY. THIS SPECIMEN WAS RESCREENED PART OF OUR SPEAKER MOUNTER PROGRAM. Specimen adequacy: Satisfact ory for evaluation. No endocervical component is identified. Clinician provided ICD10: PBC Z01.419 Performed by: Rula cano, Nail Welter (ASCP) QC reviewed by: Braxton valle, Nail Welter (ASCP) . . Note: The Pap smear [...] Criteria not met, HPV Genotype not performed. PDF Report Reviewed date:04/02/2024 01:34:04 PM Interpretation: Performing Lab:[facility] [place], [address], [address], [place], Phone - [phone], Director - [facility] Notes/Report: Clinical Information:[id number] LMP / Prev Treat...[id number]=[id number] Dates / Results....2017 Other..............Oral Contraceptives No. of containers..01 ThinPrep Vial Reason For Referral No Information Medications Medication [...] Problem Squamous cell carcinoma of upper extremity (021893804) Squamous cell carcinoma of skin of left upper limb, including shoulder (C44.629) Active confirmed Problem Major depressive disorder, recurrent, mild (F33.0) Active confirmed Problem Anxiety disorder (856783732) Anxiety disorder, unspecified (F41.9) Active confirmed Problem Gastro-esophagea l reflux disease without esophagitis (715758468) Gastro-esophage al reflux disease without esophagitis (K21.9) Active confirmed Vital Signs Temperature 97.7 degrees Fahrenheit 03/26/2024 Blood pressure diastolic 82 mm Hg 03/26/2024 Height 59 in 03/26/2024 Blood pressure systolic 122 mm Hg 03/26/2024 Weight 120 lbs 03/26/2024 BMI 24.23 kg/m2 03/26/2024 Encounters Encounter Location Date Provider Diagnosis [facility] [address] [place] [address] 03/26/2024 GLORIA MORALES Encounter for gynecological examination (general) (routine) without [...] 3D 2023 Next Appt Details Provider Name:GLORIA CEBALLOS Marvin, 04/02/2025 08:30:00 AM, [address], [address], [place], [address], Insurance Providers Payer Name Payer Address Payer Phone Subscriber Number Group Number Insured Name Patient Relationship to Insured Coverage Start Date Coverage End Date [employer] [address] JENNIFER RAMIREZ [id number] [phone] [id number] RULA MORALES Self - patient is the [...]
== END 2025-01-29 08:13 | disposition home or self-care (01) ==
LOC: HO.MAMMO 08:12
PROVIDERS: PCP Internal Medicine; Visit Provider Internal Medicine
DX: Z12.31 Encounter for screening mammogram for malignant neoplasm of breast (principal)
CPT/HCPCS: 77063; 77067

== ENCOUNTER → 2025-01-29 08:30 | Outpatient (BNV) | payer OTHER, SELFPAY | PROVIDERS: PCP Internal Medicine; Visit Provider Internal Medicine | DX: Z12.31 Encounter for screening mammogram for malignant neoplasm of breast (principal) | CPT/HCPCS: 77063; 77067 ==

== ENCOUNTER 2025-05-07 06:45 | Outpatient (REF) | payer OTHER, SELFPAY ==
[2025-05-07 10:47] LABS: Cholesterol 177 mg/dL (<200); HDL Cholesterol 56 mg/dL (>40); Triglycerides 128 mg/dL (<150)
== END 2025-05-07 06:46 | disposition home or self-care (01) ==
LOC: HO.HMGCLDS 06:45
PROVIDERS: PCP Physician Assistant; Visit Provider Physician Assistant
DX: Z13.220 Encounter for screening for lipoid disorders (principal)
CPT/HCPCS: 36415; 80061

== ENCOUNTER 2025-05-14 09:51 | Outpatient (AMB) | payer OTHER, SELFPAY ==
--- NOTE | 2025-05-14 09:57 | A.OFFPC_ITS ---
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 Accompanied by: Self / Same As Patient Allergies codeine (CODEINE) Allergy (Mild, Verified 05/14/25 09:58) RASH Medication List - Last Reconciled 05/14/25 by VALENTÍN Jensen fexofenadine 180 mg PO DAILY fluticasone propionate 50 mcg/actuation 1 spray intranasal DAILY L norgest/e.estradiol-e.estrad 0.15 mg-30 mcg (84)/10 mcg (7) (Simpesse) 1 tab PO DAILY meloxicam 15 mg PO DAILY omeprazole 40 mg PO DAILY sertraline 150 mg PO DAILY trazodone 100 mg PO BEDTIME PRN Tobacco use date assessed: 05/14/25 Dental Screening Dental Screen Date: 05/14/25 Did you have a dental visit in the last 12 months?: Yes Did you have a dental problem in the last 6 months where you did not have access to dental care?: No Was dental information given to patient?: Patient has dentist HPI HPI Comments History of Present Illness Details 54-year-old female with history of anxie ty, alcohol use disorder, substance use disorder presents to the office today for management of chronic conditions and to establish care. Depression/anxiety-following with Dr. Charlton in Psychiatry. She also follows every week or every 2 weeks with her counselor who is always available to her as well. She was recently started on bupropion but had adverse effect including cognitive fog and agitation. Reports worsening depression around the holidays, especially as this will be the anniversary of her mother's passing last year. She does have good support through [facility] as well as good supports in the family. She is working with her counselor and a plan for the holidays and she will also be participating overnight with AA groups and will also be getting away with her . Sleep has been okay with recent increase in trazodone. No SI/HI. Alcohol use disorder-in remission, has been sober for 23 years. She is active in AA. She is also been in remission for use of cocaine and prescription narcotics for the same amount of time. Osteoarthritis of the right wrist-taking meloxicam. Following with [facility]. History of surgery of the right wrist without ongoing neuropathic pain. There is some swelling but is tolerable meloxicam. alanis Nephrolithiasis-follows with Urology. Has a 3 mm nonobstructing right-sided renal calculus. Has upcoming renal ultrasound. Renal function has been normal. There has been no evidence of hydronephrosis or ureteral calculi Health maintenance: Last mammo 10/2024, no evidence of malignancy Lap Hand Tool up-to-date Last colonoscopy 11/2023, 10 year follow-up advised. Dr. Marrero ROS: See HPI EXAM: Constitutional - Awake and Alert, No apparent distress Eyes - PERRL Cardiovascular - S1S2, RRR, No edema Respiratory - Normal lung expansion, Normal respiratory effort, No respiratory distress, CTA bilaterally Extremities - no calf tenderness bilaterally, no swelling Skin - Warm/Dry Neurological - Alert & oriented x3 Psychological - Appropriate affect PFSH Medical History (Updated 05/14/25 @ 11:00 by VALENTÍN Jensen) Alcohol use disorder Osteoarthritis of right hand Hx of squamous cell carcinoma ETOH abuse Anxiety No known health problems Surgical History (Updated 11/13/24 @ 07:40 by Ruth Mead) History of colonoscopy (~11/22/23) Hx of breast surgery History of surgery on right wrist Family History (Updated 05/14/25 @ 10:28 by VALENTÍN Jensen) Mother Colon perforation Lung cancer Social History Housing: House Patient Tobacco Use Status: Former Tobacco user e-Cigarette/Vaping Use: Never Used service: No Current occupational status: employed 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-[employer] Cognitive needs: No Hearing needs: No Vision needs: Yes (Rx glasses) Physical exam (Primary Care) Vital Signs: Last Vital Signs Temp 97.6 F 05/14/25 10:02 Pulse 76 05/14/25 10:02 Resp 14 05/14/25 10:02 BP 110/78 05/14/25 10:02 Pulse Ox 97 05/14/25 10:02 Oxygen Delivery Method Room Air 05/14/25 10:02 BMI result Body Mass Index 21.9 Tobacco/Smoking Status: Tobacco use Status Tobacco use date assessed 05/14/25 05/14/25 10:04 Patient Tobacco Use Status Former Tobacco user 05/14/25 10:04 e-Cigarette/Vaping Use Never Used 05/14/25 10:04 Coding Level of Care Code Est Pt Level 4 (94910) Add On Problem Visit Only Diagnoses Depression with anxiety F41.8 Alcohol use disorder F10.90 Osteoarthritis of right wrist M19.031 Alcohol use disorder, moderate, in sustained remission F10.21 Nephrolithiasis N20.0 Assessment & Plan Assessment & Plan (1) Depression with anxiety: Code(s): F41.8 - Other specified anxiety disorders Category: Medical Plan: Uncontrolled but with plans in paced. Continue working with Psychiatry and c silvio. Continue reaching out to social supports. Continue with sertraline 150 mg daily for now. No alarm symptoms. Trazodone 100 mg as needed for insomnia. (2) Alcohol use disorder: Code(s): F10.90 - Alcohol use, unspecified, uncomplicated Category: Medical Plan: In remission. Commended for 20 years of sobriety and advised to continue with support groups and efficacy (3) Osteoarthritis of right wrist: Code(s): M19.031 - Primary osteoarthritis, right wrist Category: Medical Plan: While managed. Continue with meloxicam as well as Tylenol. We will continue monitoring renal function electrolyte levels closely (4) Alcohol use disorder, moderate, in sustained remission: Code(s): F10.21 - Alcohol dependence, in remission Category: Medical Plan: In sustained remission. Commended for her sobriety. Continue with active role in AA as well as with social supports. (5) Nephrolithiasis: Code(s): N20.0 - Calculus of kidney Category: Medical Plan: Asymptomatic. CT scan reviewed. Continue following with urology as scheduled with ultrasound next month as scheduled. Continue with adequate hydration Plan Follow-up in the office in 6 months for annual physical exam. Orders: Orders Basic Metabolic Panel 6 Months F41.8 - Other specified anxiety disorders, Z13.220 - Encounter for screening for lipoid disorders Liver Panel 6 Months F41.8 - Other specified anxiety disorders, Z13.220 - En counter for screening for lipoid disorders Lipid Panel 6 Months F41.8 - Other specified anxiety disorders, Z13.220 - Encounter for screening for lipoid disorders
[2025-05-14 10:02] VITALS: BP 110/78; PULSE 76; RESP 14; TEMP 36.4; O2SAT 97; BMI 21.9
== END 2025-05-14 10:38 | disposition home or self-care (01) ==
LOC: HO.HMCHD 09:52
PROVIDERS: Visit Provider Physician Assistant
DX: F10.21 Alcohol dependence, in remission (principal); F10.90 Alcohol use, unspecified, uncomplicated; F41.8 Other specified anxiety disorders; M19.031 Primary osteoarthritis, right wrist; N20.0 Calculus of kidney